=== PATIENT | male | born 1950 | race Two or more races ===

== ENCOUNTER 2023-06-28 14:33 | Inpatient (IN) | payer MEDICARE, OTHER ==
[~2023-06-28] VITALS: Ht 165.1 cm; Wt 66.2 kg
[2023-06-28] MEDS ORDERED: ASPI-1169 PO (15:36)
[2023-06-28] MEDS ORDERED: DORZ10DR10 EACHEYE (15:36)
[2023-06-28] MEDS ORDERED: FOLI0.8T2 PO (15:36)
[2023-06-28] MEDS ORDERED: TIMO5DRO35 EACHEYE (15:36)
[2023-06-28] MEDS ORDERED: SEVE800T8 PO (15:36)
[2023-06-28] MEDS ORDERED: DOCU100C36 PO (15:36)
[2023-06-28] MEDS ORDERED: MELA1TAB2 PO (15:36)
[2023-06-28] MEDS ORDERED: AMIO200T5 PO (15:36)
[2023-06-28] MEDS ORDERED: ALBU18HF2 IH (15:36)
[2023-06-28] MEDS ORDERED: LEVE100S PO (15:36)
[2023-06-28] MEDS ORDERED: AMIO400T5 PO (15:36)
[2023-06-28] MEDS ORDERED: SUCR500T PO (15:36)
[2023-06-28] MEDS ORDERED: ROSU10TA2 PO (15:36)
[2023-06-28] MEDS ORDERED: COLC0.6C3 PO (15:36)
[2023-06-28] MEDS ORDERED: FOLI0.4T6 PO (15:36)
[2023-06-28] MEDS ORDERED: ACET-868 PO (15:36)
[2023-06-28] MEDS ORDERED: CYCL30DR EACHEYE (15:36)
[2023-06-28] MEDS ORDERED: WARF-68 PO (15:36)
[2023-06-28] MEDS ORDERED: OMEP20CA15 PO (15:36)
[2023-06-28] MEDS ORDERED: CHOL100043 PO (15:36)
[2023-06-28] MEDS ORDERED: ATOR20TA PO (15:36)
[2023-06-28 16:08] LABS: BASOPHILS % (AUTO) 0.6 % (0.0-2.0); EOSINOPHILS # (AUTO) 0.6 K/uL (0.0-0.7); EOSINOPHILS % (AUTO) 7.4 % (0.0-6.0); HEMATOCRIT 29 % (39-51); HEMOGLOBIN 9.6 g/dL (13.5-17.5); LYMPHOCYTES # (AUTO) 0.7 K/uL (0.8-4.8); LYMPHOCYTES % (AUTO) 9.6 % (20.0-44.0); MEAN CORPUSCULAR HEMOGLOBIN 29 PG (26.0-33.0); MEAN CORPUSCULAR HGB CONC 33 g/dl (31.0-36.0); MEAN CORPUSCULAR VOLUME 89 fL (80-96); MONOCYTES # (AUTO) 0.9 K/uL (0.1-1.30); MONOCYTES % (AUTO) 11.3 % (2.0-12.0); NEUTROPHILS # (AUTO) 5.5 K/uL (1.8-8.9); NEUTROPHILS % (AUTO) 71.1 % (43.0-81.0); PLATELET COUNT (AUTO) 240 K/uL (150-450); RED BLOOD CELL COUNT(AUTO) 3.28 MIL/uL (4.5-6.0); RED CELL DISTRIBUTION WIDTH 17.4 % (11.5-15.0); WHITE BLOOD COUNT (AUTO) 7.7 K/uL (4.3-11.0)
[2023-06-28 16:16] LABS: CALCIUM, SERUM 9.3 mg/dL (8.5-10.1); CARBON DIOXIDE 34 mmol/L (21-32); CHLORIDE 97 mmol/L (98-107); CREATININE 6.2 mg/dL (0.6-1.3); GLUCOSE 113 mg/dL (74-106); POTASSIUM 4.7 mmol/L (3.5-5.1); SODIUM SERUM 136 mmol/L (136-145); UREA NITROGEN, BLOOD 28 mg/dL (7-18)
[2023-06-28 16:57] LABS: INR 1.26 (0.91-1.10); PARTIAL THROMBOPLASTIN TIME 33.2 SEC (24.3-34.3); PROTHROMBIN TIME 13.2 SECS (9.2-11.1)
[2023-06-28] MEDS: HEPARIN INFUSION/D5W 500 ML IV PRN ×2 (17:50→19:48)
[2023-06-28] MEDS ORDERED: ALBUTEROL FS 2.5 MG/0.5 ML VIAL.NEB NEB PRN (18:30)
[2023-06-28] MEDS ORDERED: MORPHINE SULFATE INJ 2 MG/ML DISP.SYRIN IV PRN (18:30)
[2023-06-28] MEDS ORDERED: DOCUSATE SODIUM 100 MG CAPSULE PO PRN (18:30)
[2023-06-28] MEDS ORDERED: ONDANSETRON HCL/PF 4 MG/2 ML VIAL IVP PRN (18:30)
[2023-06-28 19:40] VITALS: O2SAT 95
[2023-06-28] MEDS: IPRATROPIUM NEB FS 0.5 MG/2.5 ML AMPUL.NEB NEB SCH (19:44)
[2023-06-28] MEDS: ALBUTEROL FS 2.5 MG/3 ML VIAL.NEB NEB SCH (19:45)
[2023-06-28 19:55] VITALS: O2SAT 99
[2023-06-28] MEDS: ATORVASTATIN 10 MG TABLET PO SCH (21:51)
[2023-06-28] MEDS: LEVETIRACETAM SOL (5 ML) 100 MG/ML UDC PO SCH (21:51)
[2023-06-28 22:20] VITALS: BP 149/67; TEMP 98.2; O2SAT 99
[2023-06-28 23:49] LABS: INR 1.33 (0.91-1.10); PARTIAL THROMBOPLASTIN TIME 64.3 SEC (24.3-34.3); PROTHROMBIN TIME 13.8 SECS (9.2-11.1)
[2023-06-29] VITALS (10 sets, daily range): BP systolic 117–153; BP diastolic 49–64; TEMP 97.3–98.2; O2SAT 95–100
[2023-06-29 08:08] LABS: BASOPHILS # (AUTO) 0.1 K/uL (0.0-0.2); EOSINOPHILS # (AUTO) 0.7 K/uL (0.0-0.7); EOSINOPHILS % (AUTO) 9.6 % (0.0-6.0); HEMATOCRIT 26 % (39-51); HEMOGLOBIN 8.7 g/dL (13.5-17.5); LYMPHOCYTES # (AUTO) 0.7 K/uL (0.8-4.8); LYMPHOCYTES % (AUTO) 10.3 % (20.0-44.0); MEAN CORPUSCULAR HEMOGLOBIN 30 PG (26.0-33.0); MEAN CORPUSCULAR HGB CONC 34 g/dl (31.0-36.0); MEAN CORPUSCULAR VOLUME 88 fL (80-96); MONOCYTES # (AUTO) 0.8 K/uL (0.1-1.30); MONOCYTES % (AUTO) 11.3 % (2.0-12.0); NEUTROPHILS # (AUTO) 4.9 K/uL (1.8-8.9); NEUTROPHILS % (AUTO) 67.8 % (43.0-81.0); PLATELET COUNT (AUTO) 235 K/uL (150-450); RED BLOOD CELL COUNT(AUTO) 2.94 MIL/uL (4.5-6.0); RED CELL DISTRIBUTION WIDTH 17.1 % (11.5-15.0); WHITE BLOOD COUNT (AUTO) 7.2 K/uL (4.3-11.0)
[2023-06-29] MEDS: CHOLECALCIFEROL 1,000 UNIT TABLET (VIT D3) PO SCH (08:13)
[2023-06-29] MEDS: DORZOLAMIDE OPTH 2% 10 ML BOTTLE EACHEYE SCH (08:13)
[2023-06-29] MEDS: ASPIRIN 81 MG TAB.CHEW PO SCH (08:13)
[2023-06-29 08:14] LABS: INR 1.3 (0.91-1.10); PROTHROMBIN TIME 13.5 SECS (9.2-11.1)
[2023-06-29] MEDS: PANTOPRAZOLE 40 MG TABLET.DR PO SCH (08:14)
[2023-06-29] MEDS: SEVELAMER CARBONATE 800 MG TABLET PO SCH (08:14)
[2023-06-29] MEDS: AMIODARONE HCL 200 MG TABLET PO SCH (08:15)
[2023-06-29] MEDS: WARFARIN SODIUM 2 MG TABLET PO SCH (08:33)
[2023-06-29 08:44] LABS: ALANINE AMINOTRANSFERASE 6 U/L (12-78); ALBUMIN 2.8 g/dL (3.4-5.0); ALKALINE PHOSPHATASE 175 U/L (46-116); ASPARTATE AMINOTRANSFERASE 22 U/L (15-37); BILIRUBIN,TOTAL 0.6 mg/dL (0.2-1.0); CALCIUM, SERUM 8.9 mg/dL (8.5-10.1); CARBON DIOXIDE 28 mmol/L (21-32); CHLORIDE 97 mmol/L (98-107); CREATININE 7.4 mg/dL (0.6-1.3); GLUCOSE 90 mg/dL (74-106); MAGNESIUM 2.1 mg/dL (1.8-2.4); PHOSPHORUS 5.1 mg/dL (2.5-4.9); POTASSIUM 3.8 mmol/L (3.5-5.1); SODIUM SERUM 135 mmol/L (136-145); TOTAL PROTEIN, SERUM 6.9 g/dL (6.4-8.2); UREA NITROGEN, BLOOD 39 mg/dL (7-18)
[2023-06-29] MEDS ORDERED: Medication Not On Formulary EA (Cyclosporine (Restasis) 1 DROP) EACHEYE SCH (09:00)
[2023-06-29] MEDS: LEVETIRACETAM (250 MG) 250 MG TABLET PO SCH (18:10)
[2023-06-30] VITALS (11 sets, daily range): BP systolic 120–148; BP diastolic 48–68; TEMP 97.7–98.5; O2SAT 95–100
[2023-06-30 07:39] LABS: INR 1.41 (0.91-1.10); PARTIAL THROMBOPLASTIN TIME 70.5 SEC (24.3-34.3); PROTHROMBIN TIME 14.6 SECS (9.2-11.1)
[2023-06-30] MEDS ORDERED: WARFARIN SODIUM 5 MG TABLET PO SCH (09:00)
[2023-06-30] MEDS: WARFARIN SODIUM 5 MG TABLET PO SCH (09:06)
[2023-06-30 13:29] LABS: INR 1.46 (0.91-1.10); PROTHROMBIN TIME 15.1 SECS (9.2-11.1)
[2023-06-30 13:45] LABS: PARTIAL THROMBOPLASTIN TIME 81.9 SEC (24.3-34.3)
[2023-06-30] MEDS ORDERED: COLCHICINE 0.6 MG TABLET PO SCH (18:47)
[2023-06-30] MEDS ORDERED: LEVETIRACETAM SOL (5 ML) 100 MG/ML UDC PO SCH (18:54)
[2023-06-30 18:56] LABS: INR 1.55 (0.91-1.10)
[2023-06-30] MEDS: COLCHICINE 0.6 MG TABLET PO SCH (21:12)
[2023-06-30] MEDS: LEVETIRACETAM SOL (5 ML) 100 MG/ML UDC PO SCH (21:12)
[2023-07-01] VITALS (13 sets, daily range): BP systolic 130–163; BP diastolic 42–64; TEMP 98.1–98.4; O2SAT 96–100
[2023-07-01 07:05] LABS: INR 1.85 (0.91-1.10); PROTHROMBIN TIME 18.8 SECS (9.2-11.1)
[2023-07-02] VITALS (10 sets, daily range): BP systolic 147–159; BP diastolic 48–65; TEMP 97.7–98.4; O2SAT 95–100
[2023-07-02] MEDS: ACETAMINOPHEN 325 MG TABLET PO PRN (07:03)
[2023-07-02 07:05] LABS: INR 2.42 (0.91-1.10); PROTHROMBIN TIME 24.2 SECS (9.2-11.1)
[2023-07-02] MEDS: WARFARIN SODIUM 5 MG TABLET PO SCH (09:16)
[2023-07-02 13:06] LABS: HEPATITIS B SURFACE AB Reactive (.)
== END 2023-07-02 18:02 | DRG 947 ==
LOC: ER 14:33 → TELE1 18:26 → MEDSG1 06-30 14:43
PROVIDERS: ADMIT Internal Medicine; ATTEND Nurse Practitioner Acute Care
PROC: 05HY33Z Insertion of Infusion Device into Upper Vein, Percutaneous Approach (ICD-10-PCS; 2023-06-29)
PROC: 5A1D70Z Performance of Urinary Filtration, Intermittent, Less than 6 Hours Per Day (ICD-10-PCS; principal; 2023-06-30)
DX: R79.1 Abnormal coagulation profile (principal); N18.6 End stage renal disease; I12.0 Hypertensive chronic kidney disease with stage 5 chronic kidney disease or end stage renal disease; E87.1 Hypo-osmolality and hyponatremia; G40.909 Epilepsy, unspecified, not intractable, without status epilepticus; I48.91 Unspecified atrial fibrillation; E11.22 Type 2 diabetes mellitus with diabetic chronic kidney disease; Z20.822 Contact with and (suspected) exposure to COVID-19; E78.5 Hyperlipidemia, unspecified; Z79.51 Long term (current) use of inhaled steroids; Z79.01 Long term (current) use of anticoagulants; Z79.899 Other long term (current) drug therapy; Z79.82 Long term (current) use of aspirin; M89.8X9 Other specified disorders of bone, unspecified site; Z87.891 Personal history of nicotine dependence; Z95.2 Presence of prosthetic heart valve; D63.8 Anemia in other chronic diseases classified elsewhere; Z99.2 Dependence on renal dialysis
CPT/HCPCS: 36410; 36415; 71045-TC; 80048-TC; 80053-TC; 83735-TC; 84100-TC; 85025-TC; 85610-TC; 85730-TC; 86706; 87340; 90935-TC; 93307-TC; 94762-TC; 94799-TC; 97110-TC; 97116-TC; 97530-TC; 97535-TC; A4223; A6403; G0378; J1644; J1953; J7030

== ENCOUNTER 2023-07-13 17:46 | Inpatient (IN) | payer MEDICARE, OTHER ==
[~2023-07-13] VITALS: Ht 165.1 cm; Wt 65.3 kg
[~2023-07-13 17:46] MED LIST: ACET-868 PO; ALBU18HF2 IH; AMIO200T5 PO; AMIO400T5 PO; ASPI-1169 PO; ATOR20TA PO; CHOL100043 PO; COLC0.6C3 PO; CYCL30DR EACHEYE; DOCU100C36 PO; DORZ10DR10 EACHEYE; FOLI0.4T6 PO; FOLI0.8T2 PO; LEVE100S PO; MELA1TAB2 PO; OMEP20CA15 PO; ROSU10TA2 PO; SEVE800T8 PO; SUCR500T PO; TIMO5DRO35 EACHEYE; WARF-68 PO
[2023-07-13 18:25] LABS: BASOPHILS % (AUTO) 0.6 % (0.0-2.0); EOSINOPHILS # (AUTO) 0.7 K/uL (0.0-0.7); EOSINOPHILS % (AUTO) 8.7 % (0.0-6.0); LYMPHOCYTES # (AUTO) 0.7 K/uL (0.8-4.8); LYMPHOCYTES % (AUTO) 8.7 % (20.0-44.0); MEAN CORPUSCULAR HEMOGLOBIN 30 PG (26.0-33.0); MEAN CORPUSCULAR HGB CONC 33 g/dl (31.0-36.0); MEAN CORPUSCULAR VOLUME 93 fL (80-96); MONOCYTES # (AUTO) 0.6 K/uL (0.1-1.30); MONOCYTES % (AUTO) 7.4 % (2.0-12.0); NEUTROPHILS # (AUTO) 5.6 K/uL (1.8-8.9); NEUTROPHILS % (AUTO) 74.6 % (43.0-81.0); PLATELET COUNT (AUTO) 171 K/uL (150-450); RED BLOOD CELL COUNT(AUTO) 2.05 MIL/uL (4.5-6.0); RED CELL DISTRIBUTION WIDTH 20.7 % (11.5-15.0); WHITE BLOOD COUNT (AUTO) 7.5 K/uL (4.3-11.0)
[2023-07-13 18:31] LABS: CALCIUM, SERUM 9.1 mg/dL (8.5-10.1); CARBON DIOXIDE 30 mmol/L (21-32); CHLORIDE 94 mmol/L (98-107); GLUCOSE 132 mg/dL (74-106); POTASSIUM 3.6 mmol/L (3.5-5.1); SODIUM SERUM 136 mmol/L (136-145); UREA NITROGEN, BLOOD 54 mg/dL (7-18)
[2023-07-13 18:37] LABS: ALANINE AMINOTRANSFERASE 15 U/L (12-78); ALKALINE PHOSPHATASE 149 U/L (46-116); ASPARTATE AMINOTRANSFERASE 21 U/L (15-37); BILIRUBIN,DIRECT 0.2 mg/dL (0.0-0.2); BILIRUBIN,TOTAL 0.5 mg/dL (0.2-1.0); TOTAL PROTEIN, SERUM 6.9 g/dL (6.4-8.2)
[2023-07-13 18:39] LABS: CREATININE 9.4 mg/dL (0.6-1.3)
[2023-07-13 18:40] LABS: HEMATOCRIT 19 % (39-51); HEMOGLOBIN 6.2 g/dL (13.5-17.5)
[2023-07-13 18:46] LABS: INR 2.16 (0.91-1.10); PARTIAL THROMBOPLASTIN TIME 39.8 SEC (24.3-34.3); PROTHROMBIN TIME 21.8 SECS (9.2-11.1)
[2023-07-13 20:04] LABS: BASOPHILS % (MANUAL) 1 % (0.0-2.0); EOSINOPHILS % (MANUAL) 5 % (0-4); LYMPHOCYTES % (MANUAL) 4 % (16-48); MONOCYTES % (MANUAL) 6 % (0-11.0); NEUTROPHILS % (MANUAL) 84 (42-76)
[2023-07-13 20:05] LABS: ANISOCYTOSIS 1+; OVALOCYTES RARE; PLATELET ESTIMATE ADEQUATE
[2023-07-13 20:45] VITALS: BP 173/70; TEMP 98.2; O2SAT 98
[2023-07-13] MEDS ORDERED: ACETAMINOPHEN 325 MG TABLET PO PRN (23:00)
[2023-07-13] MEDS ORDERED: ONDANSETRON HCL/PF 4 MG/2 ML VIAL IVP PRN (23:00)
[2023-07-13 23:41] LABS: INR 2.16 (0.91-1.10); PROTHROMBIN TIME 21.8 SECS (9.2-11.1)
[2023-07-13] MEDS: MORPHINE SULFATE INJ 2 MG/ML DISP.SYRIN IV PRN (23:59)
[2023-07-14] VITALS (7 sets, daily range): BP systolic 148–183; BP diastolic 61–77; TEMP 97.5–98.4; O2SAT 98–100
[2023-07-14] MEDS: hydrALAZINE HCL IV 20 MG VIAL IV PRN (01:22)
[2023-07-14 07:26] LABS: INR 2.26 (0.91-1.10); PROTHROMBIN TIME 22.7 SECS (9.2-11.1)
[2023-07-14 07:27] LABS: ALANINE AMINOTRANSFERASE 13 U/L (12-78); ALBUMIN 2.7 g/dL (3.4-5.0); ALKALINE PHOSPHATASE 121 U/L (46-116); ASPARTATE AMINOTRANSFERASE 20 U/L (15-37); BILIRUBIN,TOTAL 0.6 mg/dL (0.2-1.0); CARBON DIOXIDE 26 mmol/L (21-32); CHLORIDE 95 mmol/L (98-107); GLUCOSE 78 mg/dL (74-106); MAGNESIUM 2.2 mg/dL (1.8-2.4); PHOSPHORUS 5.1 mg/dL (2.5-4.9); POTASSIUM 3.6 mmol/L (3.5-5.1); SODIUM SERUM 137 mmol/L (136-145); TOTAL PROTEIN, SERUM 6.3 g/dL (6.4-8.2); UREA NITROGEN, BLOOD 59 mg/dL (7-18)
[2023-07-14 07:38] LABS: BASOPHILS % (AUTO) 0.6 % (0.0-2.0); EOSINOPHILS # (AUTO) 0.7 K/uL (0.0-0.7); EOSINOPHILS % (AUTO) 9.4 % (0.0-6.0); HEMATOCRIT 21 % (39-51); LYMPHOCYTES # (AUTO) 0.7 K/uL (0.8-4.8); LYMPHOCYTES % (AUTO) 9.2 % (20.0-44.0); MEAN CORPUSCULAR HEMOGLOBIN 30 PG (26.0-33.0); MEAN CORPUSCULAR HGB CONC 34 g/dl (31.0-36.0); MEAN CORPUSCULAR VOLUME 90 fL (80-96); MONOCYTES # (AUTO) 0.7 K/uL (0.1-1.30); MONOCYTES % (AUTO) 10.1 % (2.0-12.0); NEUTROPHILS # (AUTO) 5.2 K/uL (1.8-8.9); NEUTROPHILS % (AUTO) 70.7 % (43.0-81.0); PLATELET COUNT (AUTO) 154 K/uL (150-450); RED CELL DISTRIBUTION WIDTH 18.9 % (11.5-15.0); WHITE BLOOD COUNT (AUTO) 7.3 K/uL (4.3-11.0)
[2023-07-14 07:39] LABS: CREATININE 10.3 mg/dL (0.6-1.3)
[2023-07-14 07:55] LABS: HEMOGLOBIN 6.9 g/dL (13.5-17.5)
[2023-07-14] MEDS: ASPIRIN 81 MG TAB.CHEW PO SCH (09:00)
[2023-07-14] MEDS ORDERED: TIMOLOL 0.5% SOLN OPHTH 5 ML BOTTLE EACHEYE SCH (09:00)
[2023-07-14] MEDS ORDERED: FOLIC ACID 1 MG TABLET PO SCH (09:00)
[2023-07-14] MEDS: AMIODARONE HCL 200 MG TABLET PO SCH (09:00)
[2023-07-14] MEDS ORDERED: AMIN30LI2 PO (09:09)
[2023-07-14] MEDS ORDERED: IPRA3AMP22 IH (09:09)
[2023-07-14] MEDS ORDERED: ALBU2.5V38 IH (09:09)
[2023-07-14] MEDS ORDERED: AMOX-427 PO (09:09)
[2023-07-14] MEDS: COLCHICINE 0.6 MG TABLET PO SCH (09:40)
[2023-07-14] MEDS: PANTOPRAZOLE 40 MG TABLET.DR PO SCH (09:40)
[2023-07-14] MEDS: DORZOLAMIDE OPTH 2% 10 ML BOTTLE EACHEYE SCH (09:42)
[2023-07-14] MEDS: SEVELAMER CARBONATE 800 MG TABLET PO SCH (09:42)
[2023-07-14 10:54] LABS: ANISOCYTOSIS 1+; BASOPHILS % (MANUAL) 0 % (0.0-2.0); EOSINOPHILS % (MANUAL) 5 % (0-4); HYPOCHROMASIA 1+; LYMPHOCYTES % (MANUAL) 9 % (16-48); MONOCYTES % (MANUAL) 11 % (0-11.0); NEUTROPHILS % (MANUAL) 75 (42-76); PLATELET ESTIMATE ADEQUATE
[2023-07-14] MEDS: LEVETIRACETAM SOL (5 ML) 100 MG/ML UDC PO SCH (13:04)
[2023-07-14] MEDS ORDERED: WARFARIN SODIUM 2 MG TABLET PO SCH (17:00)
[2023-07-14] MEDS: POLYVINYL ALCOHOL 15 ML BOTTLE EACHEYE SCH (17:00)
[2023-07-14 21:44] LABS: HEMOGLOBIN 9.3 g/dL (13.5-17.5)
[2023-07-14] MEDS ORDERED: ATORVASTATIN 10 MG TABLET PO SCH (22:00)
[2023-07-15] MEDS ORDERED: LEVETIRACETAM SOL (5 ML) 100 MG/ML UDC PO SCH (09:00)
== END 2023-07-14 21:40 | DRG 291 ==
LOC: ER 17:50 → MED 19:17
PROVIDERS: ADMIT Nurse Practitioner Acute Care; ATTEND Nurse Practitioner Acute Care
PROC: 30233N1 Transfusion of Nonautologous Red Blood Cells into Peripheral Vein, Percutaneous Approach (ICD-10-PCS; principal; 2023-07-13)
DX: I13.2 Hypertensive heart and chronic kidney disease with heart failure and with stage 5 chronic kidney disease, or end stage renal disease (principal); N18.6 End stage renal disease; D68.59 Other primary thrombophilia; I50.32 Chronic diastolic (congestive) heart failure; E11.22 Type 2 diabetes mellitus with diabetic chronic kidney disease; Z99.2 Dependence on renal dialysis; G40.909 Epilepsy, unspecified, not intractable, without status epilepticus; E11.51 Type 2 diabetes mellitus with diabetic peripheral angiopathy without gangrene; Z95.0 Presence of cardiac pacemaker; Z79.51 Long term (current) use of inhaled steroids; Z79.01 Long term (current) use of anticoagulants; Z79.82 Long term (current) use of aspirin; Z79.899 Other long term (current) drug therapy; D63.1 Anemia in chronic kidney disease; E78.5 Hyperlipidemia, unspecified; E83.51 Hypocalcemia; I48.91 Unspecified atrial fibrillation; Z87.891 Personal history of nicotine dependence
CPT/HCPCS: 36415; 71045-TC; 80048-TC; 80053-TC; 80076-TC; 83735-TC; 84100-TC; 85025-TC; 85027-TC; 85610-TC; 85730-TC; 86850-TC; 87081-TC; G0378; J0360; J1953; J2270; J7040; J7050; P9016

== ENCOUNTER 2023-07-17 16:22 | Inpatient (IN) | payer MEDICARE, OTHER ==
[~2023-07-17] VITALS: Ht 165.1 cm; Wt 67.1 kg
[~2023-07-17 16:22] MED LIST changes: -ALBU18HF2 IH; +ALBU2.5V38 IH; +AMIN30LI2 PO; -AMIO400T5 PO; +AMOX-427 PO; -CYCL30DR EACHEYE; -FOLI0.4T6 PO; +IPRA3AMP22 IH; -MELA1TAB2 PO; -ROSU10TA2 PO; -SUCR500T PO; -TIMO5DRO35 EACHEYE; -WARF-68 PO
[2023-07-17 17:10] LABS: BASOPHILS # (AUTO) 0.1 K/uL (0.0-0.2); BASOPHILS % (AUTO) 1.2 % (0.0-2.0); EOSINOPHILS # (AUTO) 0.6 K/uL (0.0-0.7); EOSINOPHILS % (AUTO) 9.7 % (0.0-6.0); HEMATOCRIT 26 % (39-51); HEMOGLOBIN 8.7 g/dL (13.5-17.5); LYMPHOCYTES # (AUTO) 0.7 K/uL (0.8-4.8); LYMPHOCYTES % (AUTO) 11.3 % (20.0-44.0); MEAN CORPUSCULAR HEMOGLOBIN 30 PG (26.0-33.0); MEAN CORPUSCULAR HGB CONC 33 g/dl (31.0-36.0); MEAN CORPUSCULAR VOLUME 90 fL (80-96); MONOCYTES # (AUTO) 0.8 K/uL (0.1-1.30); MONOCYTES % (AUTO) 13.4 % (2.0-12.0); NEUTROPHILS # (AUTO) 3.9 K/uL (1.8-8.9); NEUTROPHILS % (AUTO) 64.4 % (43.0-81.0); PLATELET COUNT (AUTO) 149 K/uL (150-450); RED BLOOD CELL COUNT(AUTO) 2.91 MIL/uL (4.5-6.0); RED CELL DISTRIBUTION WIDTH 18.1 % (11.5-15.0); WHITE BLOOD COUNT (AUTO) 6.1 K/uL (4.3-11.0)
[2023-07-17 17:22] LABS: CALCIUM, SERUM 9.1 mg/dL (8.5-10.1); CARBON DIOXIDE 31 mmol/L (21-32); CHLORIDE 94 mmol/L (98-107); GLUCOSE 129 mg/dL (74-106); POTASSIUM 4.3 mmol/L (3.5-5.1); SODIUM SERUM 136 mmol/L (136-145); UREA NITROGEN, BLOOD 40 mg/dL (7-18)
[2023-07-17 17:23] LABS: INR 1.43 (0.91-1.10); PARTIAL THROMBOPLASTIN TIME 36.9 SEC (24.3-34.3); PROTHROMBIN TIME 14.8 SECS (9.2-11.1)
[2023-07-17] MEDS ORDERED: ONDANSETRON HCL/PF 4 MG/2 ML VIAL IVP PRN (17:30)
[2023-07-17] MEDS ORDERED: HEPARIN INFUSION/D5W 500 ML IV ONE (17:41)
[2023-07-17] MEDS: HEPARIN INFUSION/D5W 500 ML IV PRN (18:02)
[2023-07-17 21:00] VITALS: BP 177/72; TEMP 98.4; O2SAT 98
[2023-07-17] MEDS ORDERED: ALBUTEROL FS 2.5 MG/3 ML VIAL.NEB IH PRN (21:00)
[2023-07-17] MEDS: DORZOLAMIDE OPTH 2% 10 ML BOTTLE EACHEYE SCH (21:00)
[2023-07-17] MEDS ORDERED: DOCUSATE SODIUM 100 MG CAPSULE PO PRN (21:00)
[2023-07-17] MEDS: SEVELAMER CARBONATE 800 MG TABLET PO SCH (21:45)
[2023-07-17] MEDS: ATORVASTATIN 10 MG TABLET PO SCH (21:45)
[2023-07-17] MEDS: COLCHICINE 0.6 MG TABLET PO SCH (21:53)
[2023-07-18] VITALS (15 sets, daily range): BP systolic 147–172; BP diastolic 57–69; TEMP 97.5–98.2; O2SAT 94–100
[2023-07-18] MEDS ORDERED: IPRATROPIUM/ALBUTEROL INHALER IH SCH
[2023-07-18 01:41] LABS: INR 1.4 (0.91-1.10); PROTHROMBIN TIME 14.5 SECS (9.2-11.1)
[2023-07-18] MEDS: hydrALAZINE HCL IV 20 MG VIAL IV PRN (02:13)
[2023-07-18] MEDS: ALBUTEROL FS 2.5 MG/0.5 ML VIAL.NEB NEB SCH (02:24)
[2023-07-18] MEDS: IPRATROPIUM NEB FS 0.5 MG/2.5 ML AMPUL.NEB IH SCH (02:24)
[2023-07-18] MEDS: PANTOPRAZOLE 40 MG TABLET.DR PO SCH (07:02)
[2023-07-18 07:42] LABS: BASOPHILS % (AUTO) 0.8 % (0.0-2.0); EOSINOPHILS # (AUTO) 0.6 K/uL (0.0-0.7); EOSINOPHILS % (AUTO) 10.4 % (0.0-6.0); HEMATOCRIT 26 % (39-51); HEMOGLOBIN 8.5 g/dL (13.5-17.5); LYMPHOCYTES # (AUTO) 0.7 K/uL (0.8-4.8); LYMPHOCYTES % (AUTO) 10.6 % (20.0-44.0); MEAN CORPUSCULAR HEMOGLOBIN 30 PG (26.0-33.0); MEAN CORPUSCULAR HGB CONC 33 g/dl (31.0-36.0); MEAN CORPUSCULAR VOLUME 90 fL (80-96); MONOCYTES # (AUTO) 0.8 K/uL (0.1-1.30); MONOCYTES % (AUTO) 12.3 % (2.0-12.0); NEUTROPHILS # (AUTO) 4.1 K/uL (1.8-8.9); NEUTROPHILS % (AUTO) 65.9 % (43.0-81.0); PLATELET COUNT (AUTO) 147 K/uL (150-450); RED BLOOD CELL COUNT(AUTO) 2.86 MIL/uL (4.5-6.0); RED CELL DISTRIBUTION WIDTH 17.5 % (11.5-15.0); WHITE BLOOD COUNT (AUTO) 6.2 K/uL (4.3-11.0)
[2023-07-18 08:10] LABS: CARBON DIOXIDE 27 mmol/L (21-32); CHLORIDE 97 mmol/L (98-107); GLUCOSE 86 mg/dL (74-106); MAGNESIUM 2.2 mg/dL (1.8-2.4); PHOSPHORUS 5.5 mg/dL (2.5-4.9); POTASSIUM 3.8 mmol/L (3.5-5.1); SODIUM SERUM 137 mmol/L (136-145); UREA NITROGEN, BLOOD 47 mg/dL (7-18)
[2023-07-18 08:20] LABS: CREATININE 8.1 mg/dL (0.6-1.3)
[2023-07-18] MEDS: ASPIRIN 81 MG TAB.CHEW PO SCH (09:11)
[2023-07-18] MEDS: VIT B CMPLX 3/FA/VIT C/BIOTIN 1 TAB TABLET PO SCH (09:12)
[2023-07-18] MEDS: AMIODARONE HCL 200 MG TABLET PO SCH (09:12)
[2023-07-18] MEDS: CHOLECALCIFEROL (VITAMIN D 3) 400 UNIT TABLET PO SCH (09:12)
[2023-07-18] MEDS: PROSTAT (PYXIS) 30 ML UDC PO SCH (09:15)
[2023-07-18 09:34] LABS: INR 1.35 (0.91-1.10)
[2023-07-18 09:38] LABS: PARTIAL THROMBOPLASTIN TIME 90.5 SEC (24.3-34.3)
[2023-07-18] MEDS ORDERED: WARFARIN SODIUM 5 MG TABLET PO SCH (10:30)
[2023-07-18] MEDS: AMOX/CLAVULANATE 875 MG TABLET PO SCH (10:30)
[2023-07-18] MEDS: EPOETIN ALFA (10,000 UNIT) 10,000 UNIT/ML VIAL SQ ONE (10:30)
[2023-07-18] MEDS: WARFARIN SODIUM 5 MG TABLET PO SCH (10:59)
[2023-07-18] MEDS: LEVETIRACETAM (250 MG) 250 MG TABLET PO SCH (13:16)
[2023-07-18 16:16] LABS: INR 1.36 (0.91-1.10); PARTIAL THROMBOPLASTIN TIME 69.8 SEC (24.3-34.3); PROTHROMBIN TIME 14.1 SECS (9.2-11.1)
[2023-07-18] MEDS: HEPARIN INFUSION/D5W 500 ML IV PRN (18:15)
[2023-07-18] MEDS ORDERED: LEVETIRACETAM SOL (5 ML) 100 MG/ML UDC PO SCH (21:00)
[2023-07-18 23:37] LABS: INR 1.49 (0.91-1.10); PROTHROMBIN TIME 15.4 SECS (9.2-11.1)
[2023-07-18 23:47] LABS: PARTIAL THROMBOPLASTIN TIME > 170.0 SEC (24.3-34.3)
[2023-07-19] VITALS (13 sets, daily range): BP systolic 111–170; BP diastolic 53–76; TEMP 97.8–98.9; O2SAT 98–100
[2023-07-19 08:35] LABS: INR 1.49 (0.91-1.10); PROTHROMBIN TIME 15.4 SECS (9.2-11.1)
[2023-07-19 08:41] LABS: INR 1.49 (0.91-1.10); PROTHROMBIN TIME 15.4 SECS (9.2-11.1)
[2023-07-19 09:12] LABS: BASOPHILS % (AUTO) 0.6 % (0.0-2.0); EOSINOPHILS # (AUTO) 0.5 K/uL (0.0-0.7); EOSINOPHILS % (AUTO) 7.3 % (0.0-6.0); HEMATOCRIT 26 % (39-51); HEMOGLOBIN 8.6 g/dL (13.5-17.5); LYMPHOCYTES # (AUTO) 0.7 K/uL (0.8-4.8); LYMPHOCYTES % (AUTO) 9.3 % (20.0-44.0); MEAN CORPUSCULAR HEMOGLOBIN 30 PG (26.0-33.0); MEAN CORPUSCULAR HGB CONC 33 g/dl (31.0-36.0); MEAN CORPUSCULAR VOLUME 90 fL (80-96); MONOCYTES # (AUTO) 0.9 K/uL (0.1-1.30); NEUTROPHILS # (AUTO) 5.1 K/uL (1.8-8.9); NEUTROPHILS % (AUTO) 70.8 % (43.0-81.0); PLATELET COUNT (AUTO) 178 K/uL (150-450); RED CELL DISTRIBUTION WIDTH 18.4 % (11.5-15.0); WHITE BLOOD COUNT (AUTO) 7.2 K/uL (4.3-11.0)
[2023-07-19 10:28] LABS: CALCIUM, SERUM 9.1 mg/dL (8.5-10.1); CARBON DIOXIDE 26 mmol/L (21-32); CHLORIDE 96 mmol/L (98-107); CREATININE 6.1 mg/dL (0.6-1.3); GLUCOSE 93 mg/dL (74-106); POTASSIUM 3.9 mmol/L (3.5-5.1); SODIUM SERUM 134 mmol/L (136-145); UREA NITROGEN, BLOOD 33 mg/dL (7-18)
[2023-07-19 10:34] LABS: ALANINE AMINOTRANSFERASE 16 U/L (12-78); ALBUMIN 2.8 g/dL (3.4-5.0); ALKALINE PHOSPHATASE 111 U/L (46-116); ASPARTATE AMINOTRANSFERASE 19 U/L (15-37); BILIRUBIN,TOTAL 0.6 mg/dL (0.2-1.0)
[2023-07-19] MEDS ORDERED: LEVETIRACETAM SOL (5 ML) 100 MG/ML UDC PO SCH (21:00)
[2023-07-20] VITALS (14 sets, daily range): BP systolic 141–165; BP diastolic 54–66; TEMP 97.9–99; O2SAT 98–100
[2023-07-20 07:17] LABS: CALCIUM, SERUM 9.3 mg/dL (8.5-10.1); CARBON DIOXIDE 30 mmol/L (21-32); CHLORIDE 94 mmol/L (98-107); GLUCOSE 103 mg/dL (74-106); POTASSIUM 4.4 mmol/L (3.5-5.1); SODIUM SERUM 132 mmol/L (136-145); UREA NITROGEN, BLOOD 53 mg/dL (7-18)
[2023-07-20 07:26] LABS: CREATININE 8.2 mg/dL (0.6-1.3)
[2023-07-20 07:47] LABS: INR 2.28 (0.91-1.10); PARTIAL THROMBOPLASTIN TIME 53.8 SEC (24.3-34.3); PROTHROMBIN TIME 22.9 SECS (9.2-11.1)
[2023-07-21] VITALS (8 sets, daily range): BP systolic 138–154; BP diastolic 57–68; TEMP 97.9; O2SAT 99–100
[2023-07-21 07:16] LABS: INR 3.4 (0.91-1.10); PARTIAL THROMBOPLASTIN TIME 66.3 SEC (24.3-34.3); PROTHROMBIN TIME 33.3 SECS (9.2-11.1)
[2023-07-21 07:20] LABS: CALCIUM, SERUM 9.1 mg/dL (8.5-10.1); CARBON DIOXIDE 24 mmol/L (21-32); CHLORIDE 93 mmol/L (98-107); GLUCOSE 106 mg/dL (74-106); POTASSIUM 4.5 mmol/L (3.5-5.1); SODIUM SERUM 132 mmol/L (136-145); UREA NITROGEN, BLOOD 63 mg/dL (7-18)
[2023-07-21 08:08] LABS: CREATININE 10.4 mg/dL (0.6-1.3)
[2023-07-21] MEDS: ACETAMINOPHEN 325 MG TABLET PO PRN (08:28)
[2023-07-21] MEDS ORDERED: WARF6TAB49 PO (08:56)
== END 2023-07-21 15:47 | DRG 947 ==
LOC: ER 16:22 → TELE-TD 17:35 → TELE1 07-18 11:51 → MEDSG1 07-20 13:18
PROVIDERS: ADMIT Nurse Practitioner Acute Care; ATTEND Nurse Practitioner Acute Care
PROC: 5A1D70Z Performance of Urinary Filtration, Intermittent, Less than 6 Hours Per Day (ICD-10-PCS; 2023-07-18)
PROC: 05HB33Z Insertion of Infusion Device into Right Basilic Vein, Percutaneous Approach (ICD-10-PCS; principal; 2023-07-19)
DX: R79.1 Abnormal coagulation profile (principal); N18.6 End stage renal disease; I13.2 Hypertensive heart and chronic kidney disease with heart failure and with stage 5 chronic kidney disease, or end stage renal disease; I50.32 Chronic diastolic (congestive) heart failure; E87.1 Hypo-osmolality and hyponatremia; Z74.01 Bed confinement status; T45.515A Adverse effect of anticoagulants, initial encounter; Y92.9 Unspecified place or not applicable; Z79.899 Other long term (current) drug therapy; E78.5 Hyperlipidemia, unspecified; E83.52 Hypercalcemia; E11.22 Type 2 diabetes mellitus with diabetic chronic kidney disease; I48.91 Unspecified atrial fibrillation; Z95.2 Presence of prosthetic heart valve; Z99.2 Dependence on renal dialysis; Z79.01 Long term (current) use of anticoagulants; I35.1 Nonrheumatic aortic (valve) insufficiency; E11.51 Type 2 diabetes mellitus with diabetic peripheral angiopathy without gangrene; D64.9 Anemia, unspecified; G40.909 Epilepsy, unspecified, not intractable, without status epilepticus; M89.8X9 Other specified disorders of bone, unspecified site; Z87.891 Personal history of nicotine dependence; Z95.0 Presence of cardiac pacemaker
CPT/HCPCS: 36410; 36415; 71045-TC; 80048-TC; 80053-TC; 83735-TC; 84100-TC; 85025-TC; 85610-TC; 85730-TC; 87081-TC; 90935-TC; 93971-TC; 94799-TC; G0378; J0360; J0885; J1644

== ENCOUNTER 2023-07-22 18:37 | Emergency (ER) | payer MEDICARE, OTHER ==
[~2023-07-22] VITALS: Ht 165.1 cm; Wt 72.6 kg
[~2023-07-22 18:37] MED LIST changes: +WARF6TAB49 PO
[2023-07-22 19:40] VITALS: BP 160/78; TEMP 98.4
[2023-07-22 21:14] LABS: INR 2.86 (0.91-1.10); PARTIAL THROMBOPLASTIN TIME 47.4 SEC (24.3-34.3)
[2023-07-22 21:49] VITALS: O2SAT 99
== END 2023-07-22 21:49 ==
LOC: ER 18:43
DX: Z13.9 Encounter for screening, unspecified (principal); G40.909 Epilepsy, unspecified, not intractable, without status epilepticus; I48.91 Unspecified atrial fibrillation; I12.0 Hypertensive chronic kidney disease with stage 5 chronic kidney disease or end stage renal disease; N18.6 End stage renal disease; E11.22 Type 2 diabetes mellitus with diabetic chronic kidney disease; D64.9 Anemia, unspecified; Z79.82 Long term (current) use of aspirin; Z79.899 Other long term (current) drug therapy
CPT/HCPCS: 36415; 85730-TC

== ENCOUNTER 2023-07-28 22:23 | Inpatient (IN) | payer MEDICARE, OTHER ==
[~2023-07-28] VITALS: Ht 167.6 cm; Wt 65.8 kg
[2023-07-28 23:46] LABS: BASOPHILS % (AUTO) 0.6 % (0.0-2.0); EOSINOPHILS # (AUTO) 0.2 K/uL (0.0-0.7); LYMPHOCYTES # (AUTO) 0.6 K/uL (0.8-4.8); MEAN CORPUSCULAR HEMOGLOBIN 30 PG (26.0-33.0); MEAN CORPUSCULAR HGB CONC 33 g/dl (31.0-36.0); MEAN CORPUSCULAR VOLUME 91 fL (80-96); MONOCYTES # (AUTO) 0.6 K/uL (0.1-1.30); NEUTROPHILS # (AUTO) 4.8 K/uL (1.8-8.9); NEUTROPHILS % (AUTO) 78.4 % (43.0-81.0); PLATELET COUNT (AUTO) 180 K/uL (150-450); RED CELL DISTRIBUTION WIDTH 19.5 % (11.5-15.0); WHITE BLOOD COUNT (AUTO) 6.1 K/uL (4.3-11.0)
[2023-07-28 23:51] LABS: RED BLOOD CELL COUNT(AUTO) 1.65 MIL/uL (4.5-6.0)
[2023-07-28] MEDS: IV NS 0.9% 1,000 ML BAG IV ONE (23:51)
[2023-07-28 23:54] LABS: HEMATOCRIT 15 % (39-51); HEMOGLOBIN 4.9 g/dL (13.5-17.5)
[2023-07-29] VITALS (47 sets, daily range): BP systolic 75–150; BP diastolic 23–94; TEMP 97.6–101; O2SAT 96–100
[2023-07-29 00:02] LABS: CALCIUM, SERUM 8.6 mg/dL (8.5-10.1); CARBON DIOXIDE 29 mmol/L (21-32); CHLORIDE 95 mmol/L (98-107); CREATININE 5.4 mg/dL (0.6-1.3); GLUCOSE 122 mg/dL (74-106); POTASSIUM 4.4 mmol/L (3.5-5.1); SODIUM SERUM 133 mmol/L (136-145); UREA NITROGEN, BLOOD 47 mg/dL (7-18)
[2023-07-29 00:03] LABS: PARTIAL THROMBOPLASTIN TIME 63.5 SEC (24.3-34.3); PROTHROMBIN TIME 47.4 SECS (9.2-11.1)
[2023-07-29 00:04] LABS: INR 4.97 (0.91-1.10)
[2023-07-29 00:07] LABS: ALANINE AMINOTRANSFERASE 17 U/L (12-78); ALBUMIN 2.7 g/dL (3.4-5.0); ALKALINE PHOSPHATASE 99 U/L (46-116); ASPARTATE AMINOTRANSFERASE 41 U/L (15-37); BILIRUBIN,DIRECT 0.2 mg/dL (0.0-0.2); BILIRUBIN,TOTAL 0.8 mg/dL (0.2-1.0); LIPASE 17 U/L (16-77); TOTAL PROTEIN, SERUM 6.3 g/dL (6.4-8.2)
[2023-07-29 00:10] LABS: LACTIC ACID 1.7 mmol/L (0.4-2.0)
[2023-07-29] MEDS ORDERED: IOHEXOL-350 100 ML VIAL IV ONE (00:22)
[2023-07-29] MEDS ORDERED: CT SWABBABLE VALVE TRANS SET 1 EA INFUS.SET MC ONE (00:22)
[2023-07-29] MEDS ORDERED: IV NS 0.9% 250 ML IV ONE (00:22)
[2023-07-29 00:49] LABS: ANISOCYTOSIS 1+; BASOPHILS % (MANUAL) 0 % (0.0-2.0); EOSINOPHILS % (MANUAL) 4 % (0-4); HYPOCHROMASIA 1+; LYMPHOCYTES % (MANUAL) 11 % (16-48); MONOCYTES % (MANUAL) 10 % (0-11.0); NEUTROPHILS % (MANUAL) 75 (42-76); OVALOCYTES 1+; PLATELET ESTIMATE ADEQUATE
[2023-07-29] MEDS ORDERED: ONDANSETRON HCL/PF 4 MG/2 ML VIAL IVP PRN (03:00)
[2023-07-29] MEDS ORDERED: Z GUARD REMEDY 4 OZ OINT TP PRN (03:00)
[2023-07-29] MEDS ORDERED: HYDROCODONE/APAP 5/325MG TABLET PO PRN (03:00)
[2023-07-29] MEDS: ACETAMINOPHEN 325 MG TABLET PO PRN (04:06)
[2023-07-29 06:53] LABS: BASOPHILS % (AUTO) 0.3 % (0.0-2.0); EOSINOPHILS % (AUTO) 0.5 % (0.0-6.0); LYMPHOCYTES # (AUTO) 0.4 K/uL (0.8-4.8); LYMPHOCYTES % (AUTO) 6.1 % (20.0-44.0); MEAN CORPUSCULAR HEMOGLOBIN 30 PG (26.0-33.0); MEAN CORPUSCULAR HGB CONC 34 g/dl (31.0-36.0); MEAN CORPUSCULAR VOLUME 89 fL (80-96); MONOCYTES # (AUTO) 0.6 K/uL (0.1-1.30); MONOCYTES % (AUTO) 9.2 % (2.0-12.0); NEUTROPHILS # (AUTO) 5.2 K/uL (1.8-8.9); NEUTROPHILS % (AUTO) 83.9 % (43.0-81.0); PLATELET COUNT (AUTO) 129 K/uL (150-450); RED CELL DISTRIBUTION WIDTH 17.3 % (11.5-15.0); WHITE BLOOD COUNT (AUTO) 6.2 K/uL (4.3-11.0)
[2023-07-29 06:55] LABS: RED BLOOD CELL COUNT(AUTO) 1.59 MIL/uL (4.5-6.0)
[2023-07-29 06:58] LABS: HEMATOCRIT 14 % (39-51); HEMOGLOBIN 4.8 g/dL (13.5-17.5)
[2023-07-29 07:11] LABS: OCCULT BLOOD STOOL POSITIVE (NEGATIVE)
[2023-07-29] MEDS: PANTOPRAZOLE 40 MG TABLET.DR PO SCH (08:11)
[2023-07-29 10:10] LABS: ANISOCYTOSIS 1+; BAND % (MANUAL) 2 % (0.0-5.0); BASOPHILS % (MANUAL) 0 % (0.0-2.0); EOSINOPHILS % (MANUAL) 1 % (0-4); HYPOCHROMASIA 1+; LYMPHOCYTES % (MANUAL) 4 % (16-48); MONOCYTES % (MANUAL) 6 % (0-11.0); NEUTROPHILS % (MANUAL) 87 (42-76); PLATELET ESTIMATE DECREASED
[2023-07-29] MEDS ORDERED: IPRA0.2S49 IH (10:15)
[2023-07-29] MEDS ORDERED: LEVE250T2 PO (10:15)
[2023-07-29] MEDS ORDERED: WARF3TAB59 PO (10:15)
[2023-07-29] MEDS ORDERED: CHOL400T15 PO (10:15)
[2023-07-29] MEDS: ZOSYN IVPB 2.25 G in IV D5W 50ml IV SCH (10:52)
[2023-07-29] MEDS: PANTOPRAZOLE 40 MG VIAL IV SCH (10:52)
[2023-07-29] MEDS ORDERED: DEXTROSE 50%-WATER 50 ML DISP.SYRIN IV PRN (11:00)
[2023-07-29] MEDS: BLOOD SUGAR DIAGNOSTIC 1 EACH STRIP IN SCH (11:53)
[2023-07-29] MEDS ORDERED: PIPERACILLIN /TAZOBACTAM 2.25 G in IV D5W 50 ML IV SCH (12:00)
[2023-07-29] MEDS ORDERED: EPOETIN ALFA (20,000 UNIT) 20,000 UNIT/ML VIAL SQ ONE (12:30)
[2023-07-29] MEDS: AMIODARONE HCL 200 MG TABLET PO SCH (15:00)
[2023-07-29] MEDS: EPOETIN ALFA (10,000 UNIT) 10,000 UNIT/ML VIAL SQ ONE (15:29)
[2023-07-29] MEDS: PROSTAT (PYXIS) 30 ML UDC PO SCH (16:38)
[2023-07-29] MEDS: DORZOLAMIDE OPTH 2% 10 ML BOTTLE EACHEYE SCH (16:40)
[2023-07-29 17:00] LABS: BASOPHILS % (AUTO) 0.2 % (0.0-2.0); EOSINOPHILS # (AUTO) 0.1 K/uL (0.0-0.7); EOSINOPHILS % (AUTO) 0.7 % (0.0-6.0); LYMPHOCYTES # (AUTO) 0.6 K/uL (0.8-4.8); MEAN CORPUSCULAR HEMOGLOBIN 31 PG (26.0-33.0); MEAN CORPUSCULAR HGB CONC 35 g/dl (31.0-36.0); MEAN CORPUSCULAR VOLUME 89 fL (80-96); MONOCYTES # (AUTO) 0.7 K/uL (0.1-1.30); MONOCYTES % (AUTO) 8.9 % (2.0-12.0); NEUTROPHILS % (AUTO) 83.2 % (43.0-81.0); PLATELET COUNT (AUTO) 134 K/uL (150-450); RED BLOOD CELL COUNT(AUTO) 2.09 MIL/uL (4.5-6.0); RED CELL DISTRIBUTION WIDTH 15.9 % (11.5-15.0); WHITE BLOOD COUNT (AUTO) 8.4 K/uL (4.3-11.0)
[2023-07-29 17:07] LABS: HEMOGLOBIN 6.5 g/dL (13.5-17.5)
[2023-07-29 17:08] LABS: HEMATOCRIT 19 % (39-51)
[2023-07-29 17:15] LABS: INR 2.48 (0.91-1.10); PARTIAL THROMBOPLASTIN TIME 47.6 SEC (24.3-34.3); PROTHROMBIN TIME 24.8 SECS (9.2-11.1)
[2023-07-29] MEDS: SEVELAMER CARBONATE 800 MG TABLET PO SCH (17:22)
[2023-07-29 17:42] LABS: ANISOCYTOSIS 1+; LYMPHOCYTES % (MANUAL) 2 % (16-48); MONOCYTES % (MANUAL) 6 % (0-11.0); NEUTROPHILS % (MANUAL) 92 (42-76); PLATELET ESTIMATE DECREASED
[2023-07-29] MEDS: LEVETIRACETAM (500MG) 250 MG in IV NS 0.9% 100 ML IV SCH (21:08)
[2023-07-29] MEDS: ATORVASTATIN 10 MG TABLET PO SCH (22:00)
[2023-07-30] VITALS (45 sets, daily range): BP systolic 120–198; BP diastolic 48–121; TEMP 97.5–99; O2SAT 85–100
[2023-07-30] MEDS: INSULIN REGULAR, HUMAN 100 UNIT/ML 3 ML VIAL SQ PRN (00:10)
[2023-07-30] MEDS: IPRATROPIUM NEB FS 0.5 MG/2.5 ML AMPUL.NEB IH SCH (01:48)
[2023-07-30 03:38] LABS: BASOPHILS % (AUTO) 0.4 % (0.0-2.0); EOSINOPHILS # (AUTO) 0.3 K/uL (0.0-0.7); EOSINOPHILS % (AUTO) 3.5 % (0.0-6.0); HEMATOCRIT 26 % (39-51); LYMPHOCYTES # (AUTO) 0.7 K/uL (0.8-4.8); LYMPHOCYTES % (AUTO) 9.2 % (20.0-44.0); MEAN CORPUSCULAR HEMOGLOBIN 31 PG (26.0-33.0); MEAN CORPUSCULAR HGB CONC 35 g/dl (31.0-36.0); MEAN CORPUSCULAR VOLUME 90 fL (80-96); MONOCYTES # (AUTO) 0.9 K/uL (0.1-1.30); MONOCYTES % (AUTO) 11.7 % (2.0-12.0); NEUTROPHILS # (AUTO) 5.8 K/uL (1.8-8.9); NEUTROPHILS % (AUTO) 75.2 % (43.0-81.0); PLATELET COUNT (AUTO) 121 K/uL (150-450); RED BLOOD CELL COUNT(AUTO) 2.89 MIL/uL (4.5-6.0); RED CELL DISTRIBUTION WIDTH 15.9 % (11.5-15.0); WHITE BLOOD COUNT (AUTO) 7.7 K/uL (4.3-11.0)
[2023-07-30 03:50] LABS: CALCIUM, SERUM 8.3 mg/dL (8.5-10.1); CARBON DIOXIDE 25 mmol/L (21-32); CHLORIDE 99 mmol/L (98-107); CREATININE 7.3 mg/dL (0.6-1.3); GLUCOSE 89 mg/dL (74-106); PHOSPHORUS 7.4 mg/dL (2.5-4.9); POTASSIUM 4.7 mmol/L (3.5-5.1); SODIUM SERUM 138 mmol/L (136-145); UREA NITROGEN, BLOOD 63 mg/dL (7-18)
[2023-07-30 03:51] LABS: INR 2.09 (0.91-1.10); PARTIAL THROMBOPLASTIN TIME 45.5 SEC (24.3-34.3); PROTHROMBIN TIME 21.1 SECS (9.2-11.1)
[2023-07-30 04:02] LABS: CHOLESTEROL 87 mg/dL (<200); HDL CHOLESTEROL 32 mg/dL (40-60); LDL 32 mg/dL (0-99); THYROID STIMULATING HORMONE 6.358 uIU/mL (0.358-3.74); TRIGLYCERIDES 135 mg/dL (30-150)
[2023-07-30 04:50] LABS: IRON, SERUM 28 ug/dl (50-175); TOTAL IRON BINDING CAPACITY 117 ug/dl (250-450)
[2023-07-30] MEDS: CHOLECALCIFEROL (VITAMIN D 3) 400 UNIT TABLET PO SCH (08:19)
[2023-07-30] MEDS: VIT B CMPLX 3/FA/VIT C/BIOTIN 1 TAB TABLET PO SCH (08:19)
[2023-07-30] MEDS: PANTOPRAZOLE 40 MG VIAL IV SCH (08:27)
[2023-07-30] MEDS: PEG 3350/NA SULF,BICARB,CL/KCL 4,000 ML BOTTLE PO ONE (08:34)
[2023-07-30] MEDS: hydrALAZINE HCL IV 20 MG VIAL IV PRN (09:56)
[2023-07-30 18:00] LABS: HEMOGLOBIN 9.5 g/dL (13.5-17.5)
[2023-07-30 18:22] LABS: RHEUMATOID FACTOR SCREEN NEGATIVE (NEGATIVE)
[2023-07-30] MEDS: LEVETIRACETAM SOL (5 ML) 100 MG/ML UDC PO SCH (21:01)
[2023-07-31] VITALS (37 sets, daily range): BP systolic 132–198; BP diastolic 49–154; TEMP 97.5–98.6; O2SAT 95–100
[2023-07-31 06:21] LABS: BASOPHILS % (AUTO) 0.5 % (0.0-2.0); EOSINOPHILS # (AUTO) 0.5 K/uL (0.0-0.7); EOSINOPHILS % (AUTO) 7.9 % (0.0-6.0); HEMATOCRIT 26 % (39-51); HEMOGLOBIN 9.1 g/dL (13.5-17.5); LYMPHOCYTES # (AUTO) 0.6 K/uL (0.8-4.8); LYMPHOCYTES % (AUTO) 9.7 % (20.0-44.0); MEAN CORPUSCULAR HEMOGLOBIN 32 PG (26.0-33.0); MEAN CORPUSCULAR HGB CONC 35 g/dl (31.0-36.0); MEAN CORPUSCULAR VOLUME 90 fL (80-96); MONOCYTES # (AUTO) 0.6 K/uL (0.1-1.30); MONOCYTES % (AUTO) 10.3 % (2.0-12.0); NEUTROPHILS # (AUTO) 4.5 K/uL (1.8-8.9); NEUTROPHILS % (AUTO) 71.6 % (43.0-81.0); PLATELET COUNT (AUTO) 123 K/uL (150-450); RED BLOOD CELL COUNT(AUTO) 2.87 MIL/uL (4.5-6.0); RED CELL DISTRIBUTION WIDTH 16.1 % (11.5-15.0); WHITE BLOOD COUNT (AUTO) 6.3 K/uL (4.3-11.0)
[2023-07-31 06:31] LABS: INR 2.12 (0.91-1.10); PARTIAL THROMBOPLASTIN TIME 51.8 SEC (24.3-34.3); PROTHROMBIN TIME 21.4 SECS (9.2-11.1)
[2023-07-31 07:11] LABS: CALCIUM, SERUM 8.4 mg/dL (8.5-10.1); CARBON DIOXIDE 28 mmol/L (21-32); CHLORIDE 97 mmol/L (98-107); CREATININE 5.7 mg/dL (0.6-1.3); GLUCOSE 80 mg/dL (74-106); MAGNESIUM 1.9 mg/dL (1.8-2.4); PHOSPHORUS 5.2 mg/dL (2.5-4.9); SODIUM SERUM 138 mmol/L (136-145); UREA NITROGEN, BLOOD 30 mg/dL (7-18)
[2023-07-31 08:06] LABS: IMMUNOGLOBULIN A, SERUM 240 mg/dL (61-437); IMMUNOGLOBULIN G, SERUM 974 mg/dL (603-1613); IMMUNOGLOBULIN M, SERUM 49 mg/dL (15-143)
[2023-07-31 10:10] LABS: *SPE A/G RATIO 1.1 (0.7-1.7); *SPE ALBUMIN 2.8 g/dL (2.9-4.4); *SPE ALPHA-1-GLOBULIN 0.3 g/dL (0.0-0.4); *SPE ALPHA-2-GLOBULIN 0.6 g/dL (0.4-1.0); *SPE BETA GLOBULIN 0.6 g/dL (0.7-1.3); *SPE GLOBULIN, TOTAL 2.6 g/dL (2.2-3.9); *SPE M-SPIKE Not Observed g/dL (Not Observed); *SPE PROTEIN TOTAL 5.4 g/dL (6.0-8.5); *SPEGAMMA GLOBULIN 1.1 g/dL (0.4-1.8)
[2023-07-31 12:08] LABS: *ANA ANTI-CENTROMERE B AB <0.2 AI (0.0-0.9); *ANA ANTI-DNA(DS) AB, QN 1 IU/mL (0-9); *ANA ANTI-JO-1 <0.2 AI (0.0-0.9); *ANA ANTICHROMATIN ANTIBODY <0.2 AI (0.0-0.9); *ANA RNP ANTIBODIES <0.2 AI (0.0-0.9); *ANA SJOGREN'S ANTI-SS-A <0.2 AI (0.0-0.9); *ANA SJOGREN'S ANTI-SS-B <0.2 AI (0.0-0.9); *ANAANTI-SCLERODERMA-70 AB 0.4 AI (0.0-0.9); *ANASMITH AB <0.2 AI (0.0-0.9); FREE KAPPA LT CHAINS SERUM 248.9 mg/L (3.3-19.4); FREE LAMBDA LT CHAIN SERUM 257.4 mg/L (5.7-26.3); KAPPA/LAMBDA RATIO SERUM 0.97 (0.26-1.65)
[2023-07-31 13:11] LABS: HEPATITIS B SURFACE AB Reactive (.)
[2023-07-31] MEDS: COLCHICINE 0.6 MG TABLET PO SCH (14:37)
[2023-08-01] VITALS (31 sets, daily range): BP systolic 111–186; BP diastolic 33–86; TEMP 97.6–98.5; O2SAT 95–100
[2023-08-01 02:06] LABS: FOLIC ACID 11.9 ng/mL (>3.0)
[2023-08-01 10:57] LABS: BASOPHILS % (AUTO) 0.7 % (0.0-2.0); EOSINOPHILS # (AUTO) 0.5 K/uL (0.0-0.7); EOSINOPHILS % (AUTO) 6.6 % (0.0-6.0); HEMATOCRIT 28 % (39-51); HEMOGLOBIN 9.6 g/dL (13.5-17.5); LYMPHOCYTES # (AUTO) 0.8 K/uL (0.8-4.8); LYMPHOCYTES % (AUTO) 10.7 % (20.0-44.0); MEAN CORPUSCULAR HEMOGLOBIN 31 PG (26.0-33.0); MEAN CORPUSCULAR HGB CONC 34 g/dl (31.0-36.0); MEAN CORPUSCULAR VOLUME 92 fL (80-96); MONOCYTES # (AUTO) 0.6 K/uL (0.1-1.30); MONOCYTES % (AUTO) 7.8 % (2.0-12.0); NEUTROPHILS # (AUTO) 5.5 K/uL (1.8-8.9); NEUTROPHILS % (AUTO) 74.2 % (43.0-81.0); PLATELET COUNT (AUTO) 160 K/uL (150-450); RED BLOOD CELL COUNT(AUTO) 3.07 MIL/uL (4.5-6.0); RED CELL DISTRIBUTION WIDTH 16.2 % (11.5-15.0); WHITE BLOOD COUNT (AUTO) 7.4 K/uL (4.3-11.0)
[2023-08-01 11:20] LABS: CALCIUM, SERUM 8.5 mg/dL (8.5-10.1); CARBON DIOXIDE 24 mmol/L (21-32); CHLORIDE 97 mmol/L (98-107); GLUCOSE 64 mg/dL (74-106); PHOSPHORUS 6.8 mg/dL (2.5-4.9); SODIUM SERUM 138 mmol/L (136-145); UREA NITROGEN, BLOOD 37 mg/dL (7-18)
[2023-08-01 11:28] LABS: CREATININE 8.1 mg/dL (0.6-1.3)
[2023-08-01] MEDS: IV D5/ 0.9% NACL 1,000 ML IV PRN (13:10)
[2023-08-01] MEDS ORDERED: DEXTROSE 50%-WATER 50 ML DISP.SYRIN IV PRN (18:30)
[2023-08-01] MEDS: BLOOD SUGAR DIAGNOSTIC 1 EACH STRIP IN SCH (22:53)
[2023-08-02] VITALS (14 sets, daily range): BP systolic 145–156; BP diastolic 54–64; TEMP 97.7–99; O2SAT 94–100
[2023-08-02 06:23] LABS: BASOPHILS % (AUTO) 0.6 % (0.0-2.0); EOSINOPHILS # (AUTO) 0.5 K/uL (0.0-0.7); EOSINOPHILS % (AUTO) 9.1 % (0.0-6.0); HEMATOCRIT 26 % (39-51); HEMOGLOBIN 8.9 g/dL (13.5-17.5); LYMPHOCYTES # (AUTO) 0.6 K/uL (0.8-4.8); LYMPHOCYTES % (AUTO) 9.5 % (20.0-44.0); MEAN CORPUSCULAR HEMOGLOBIN 31 PG (26.0-33.0); MEAN CORPUSCULAR HGB CONC 34 g/dl (31.0-36.0); MEAN CORPUSCULAR VOLUME 91 fL (80-96); MONOCYTES # (AUTO) 0.6 K/uL (0.1-1.30); MONOCYTES % (AUTO) 9.6 % (2.0-12.0); NEUTROPHILS # (AUTO) 4.3 K/uL (1.8-8.9); NEUTROPHILS % (AUTO) 71.2 % (43.0-81.0); PLATELET COUNT (AUTO) 164 K/uL (150-450); RED BLOOD CELL COUNT(AUTO) 2.82 MIL/uL (4.5-6.0); RED CELL DISTRIBUTION WIDTH 16.4 % (11.5-15.0)
[2023-08-02 06:41] LABS: INR 2.61 (0.91-1.10)
[2023-08-02 06:58] LABS: CALCIUM, SERUM 8.3 mg/dL (8.5-10.1); CARBON DIOXIDE 28 mmol/L (21-32); CHLORIDE 99 mmol/L (98-107); CREATININE 5.3 mg/dL (0.6-1.3); GLUCOSE 100 mg/dL (74-106); MAGNESIUM 1.9 mg/dL (1.8-2.4); PHOSPHORUS 3.9 mg/dL (2.5-4.9); POTASSIUM 3.1 mmol/L (3.5-5.1); SODIUM SERUM 140 mmol/L (136-145); UREA NITROGEN, BLOOD 19 mg/dL (7-18)
[2023-08-02] MEDS: PANTOPRAZOLE 40 MG/PACK PACK PO SCH (21:18)
[2023-08-03] VITALS (14 sets, daily range): BP systolic 140–160; BP diastolic 54–84; TEMP 97.7–98.8; O2SAT 96–100
[2023-08-03 07:13] LABS: BASOPHILS % (AUTO) 0.5 % (0.0-2.0); EOSINOPHILS # (AUTO) 0.6 K/uL (0.0-0.7); EOSINOPHILS % (AUTO) 8.1 % (0.0-6.0); HEMATOCRIT 26 % (39-51); HEMOGLOBIN 8.6 g/dL (13.5-17.5); LYMPHOCYTES # (AUTO) 0.9 K/uL (0.8-4.8); LYMPHOCYTES % (AUTO) 12.3 % (20.0-44.0); MEAN CORPUSCULAR HEMOGLOBIN 31 PG (26.0-33.0); MEAN CORPUSCULAR HGB CONC 33 g/dl (31.0-36.0); MEAN CORPUSCULAR VOLUME 93 fL (80-96); MONOCYTES # (AUTO) 0.6 K/uL (0.1-1.30); MONOCYTES % (AUTO) 8.2 % (2.0-12.0); NEUTROPHILS % (AUTO) 70.9 % (43.0-81.0); PLATELET COUNT (AUTO) 172 K/uL (150-450); RED CELL DISTRIBUTION WIDTH 16.1 % (11.5-15.0); WHITE BLOOD COUNT (AUTO) 7.1 K/uL (4.3-11.0)
[2023-08-03 07:25] LABS: INR 2.14 (0.91-1.10); PROTHROMBIN TIME 21.6 SECS (9.2-11.1)
[2023-08-03 08:16] LABS: CHLORIDE 98 mmol/L (98-107); POTASSIUM 3.4 mmol/L (3.5-5.1); SODIUM SERUM 138 mmol/L (136-145)
[2023-08-03 08:17] LABS: CALCIUM, SERUM 8.3 mg/dL (8.5-10.1); CARBON DIOXIDE 26 mmol/L (21-32); GLUCOSE 80 mg/dL (74-106); MAGNESIUM 1.9 mg/dL (1.8-2.4); UREA NITROGEN, BLOOD 27 mg/dL (7-18)
[2023-08-03 08:18] LABS: CREATININE 7.5 mg/dL (0.6-1.3); PHOSPHORUS 4.9 mg/dL (2.5-4.9)
[2023-08-03] MEDS: POTASSIUM CHLORIDE 10 MEQ TABLET.SA PO ONE (10:06)
[2023-08-03] MEDS: WARFARIN SODIUM 1 MG TABLET PO SCH (16:44)
[2023-08-03] MEDS: LEVETIRACETAM (250 MG) 250 MG TABLET PO SCH (21:05)
[2023-08-03] MEDS: INSULIN REGULAR, HUMAN 100 UNIT/ML 3 ML VIAL SQ PRN (21:36)
[2023-08-04] VITALS (12 sets, daily range): BP systolic 138–165; BP diastolic 61–73; TEMP 97.7–99; O2SAT 96–100
[2023-08-04 07:24] LABS: BASOPHILS # (AUTO) 0.1 K/uL (0.0-0.2); BASOPHILS % (AUTO) 0.7 % (0.0-2.0); EOSINOPHILS # (AUTO) 0.7 K/uL (0.0-0.7); EOSINOPHILS % (AUTO) 8.5 % (0.0-6.0); HEMATOCRIT 27 % (39-51); HEMOGLOBIN 8.9 g/dL (13.5-17.5); LYMPHOCYTES # (AUTO) 0.9 K/uL (0.8-4.8); LYMPHOCYTES % (AUTO) 10.7 % (20.0-44.0); MEAN CORPUSCULAR HEMOGLOBIN 31 PG (26.0-33.0); MEAN CORPUSCULAR HGB CONC 34 g/dl (31.0-36.0); MEAN CORPUSCULAR VOLUME 92 fL (80-96); MONOCYTES # (AUTO) 0.5 K/uL (0.1-1.30); NEUTROPHILS # (AUTO) 6.1 K/uL (1.8-8.9); NEUTROPHILS % (AUTO) 74.1 % (43.0-81.0); PLATELET COUNT (AUTO) 184 K/uL (150-450); RED CELL DISTRIBUTION WIDTH 16.2 % (11.5-15.0); WHITE BLOOD COUNT (AUTO) 8.2 K/uL (4.3-11.0)
[2023-08-04 07:40] LABS: INR 1.93 (0.91-1.10); PARTIAL THROMBOPLASTIN TIME 45.3 SEC (24.3-34.3); PROTHROMBIN TIME 19.6 SECS (9.2-11.1)
[2023-08-04 08:28] LABS: CALCIUM, SERUM 8.3 mg/dL (8.5-10.1); CARBON DIOXIDE 26 mmol/L (21-32); CHLORIDE 96 mmol/L (98-107); GLUCOSE 71 mg/dL (74-106); POTASSIUM 3.6 mmol/L (3.5-5.1); SODIUM SERUM 138 mmol/L (136-145); UREA NITROGEN, BLOOD 33 mg/dL (7-18)
[2023-08-04 08:55] LABS: CREATININE 9.2 mg/dL (0.6-1.3)
[2023-08-04] MEDS: ZOSYN IVPB 2.25 G in IV D5W 50ml IV SCH (12:40)
[2023-08-04] MEDS: WARFARIN SODIUM 1 MG TABLET PO SCH (16:10)
[2023-08-05] VITALS (10 sets, daily range): BP systolic 148–185; BP diastolic 53–73; TEMP 98.3–98.4; O2SAT 96–100
[2023-08-05 07:24] LABS: CALCIUM, SERUM 8.4 mg/dL (8.5-10.1); CARBON DIOXIDE 29 mmol/L (21-32); CHLORIDE 99 mmol/L (98-107); GLUCOSE 77 mg/dL (74-106); MAGNESIUM 2.1 mg/dL (1.8-2.4); PHOSPHORUS 4.7 mg/dL (2.5-4.9); POTASSIUM 3.6 mmol/L (3.5-5.1); SODIUM SERUM 140 mmol/L (136-145); UREA NITROGEN, BLOOD 25 mg/dL (7-18)
[2023-08-05 07:29] LABS: BASOPHILS % (AUTO) 0.5 % (0.0-2.0); EOSINOPHILS # (AUTO) 0.7 K/uL (0.0-0.7); HEMATOCRIT 26 % (39-51); HEMOGLOBIN 8.8 g/dL (13.5-17.5); LYMPHOCYTES # (AUTO) 0.6 K/uL (0.8-4.8); LYMPHOCYTES % (AUTO) 8.1 % (20.0-44.0); MEAN CORPUSCULAR HEMOGLOBIN 31 PG (26.0-33.0); MEAN CORPUSCULAR HGB CONC 34 g/dl (31.0-36.0); MEAN CORPUSCULAR VOLUME 91 fL (80-96); MONOCYTES # (AUTO) 0.6 K/uL (0.1-1.30); MONOCYTES % (AUTO) 7.7 % (2.0-12.0); NEUTROPHILS # (AUTO) 5.8 K/uL (1.8-8.9); NEUTROPHILS % (AUTO) 74.7 % (43.0-81.0); PLATELET COUNT (AUTO) 167 K/uL (150-450); RED BLOOD CELL COUNT(AUTO) 2.83 MIL/uL (4.5-6.0); RED CELL DISTRIBUTION WIDTH 16.3 % (11.5-15.0); WHITE BLOOD COUNT (AUTO) 7.8 K/uL (4.3-11.0)
[2023-08-05 07:37] LABS: INR 3.04 (0.91-1.10); PARTIAL THROMBOPLASTIN TIME 51.1 SEC (24.3-34.3)
[2023-08-05 07:57] LABS: CREATININE 7.9 mg/dL (0.6-1.3)
[2023-08-05] MEDS: PROSOURCE / PROSTAT (PYXIS) 30 ML UDC PO SCH (08:36)
== END 2023-08-05 16:58 | DRG 377 ==
LOC: ER 22:24 → TELE1 07-29 01:04 → ICU 07-29 09:21 → TELE1 08-01 20:04 → MEDSG1 08-04 11:59
PROVIDERS: ADMIT Nurse Practitioner Acute Care
PROC: 05H933Z Insertion of Infusion Device into Right Brachial Vein, Percutaneous Approach (ICD-10-PCS; principal; 2023-07-29)
PROC: 30233K1 Transfusion of Nonautologous Frozen Plasma into Peripheral Vein, Percutaneous Approach (ICD-10-PCS; 2023-07-29)
PROC: 30233N1 Transfusion of Nonautologous Red Blood Cells into Peripheral Vein, Percutaneous Approach (ICD-10-PCS; 2023-07-29)
PROC: 5A1D70Z Performance of Urinary Filtration, Intermittent, Less than 6 Hours Per Day (ICD-10-PCS; 2023-07-30)
PROC: 0DB98ZX Excision of Duodenum, Via Natural or Artificial Opening Endoscopic, Diagnostic (ICD-10-PCS; 2023-07-31)
PROC: 0DJD8ZZ Inspection of Lower Intestinal Tract, Via Natural or Artificial Opening Endoscopic (ICD-10-PCS; 2023-07-31)
DX: K29.71 Gastritis, unspecified, with bleeding (principal); I21.A1 Myocardial infarction type 2; N18.6 End stage renal disease; I13.2 Hypertensive heart and chronic kidney disease with heart failure and with stage 5 chronic kidney disease, or end stage renal disease; I50.32 Chronic diastolic (congestive) heart failure; D68.59 Other primary thrombophilia; E44.0 Moderate protein-calorie malnutrition; D61.818 Other pancytopenia; R65.10 Systemic inflammatory response syndrome (SIRS) of non-infectious origin without acute organ dysfunction; K81.0 Acute cholecystitis; E87.1 Hypo-osmolality and hyponatremia; D68.9 Coagulation defect, unspecified; K64.8 Other hemorrhoids; G40.909 Epilepsy, unspecified, not intractable, without status epilepticus; I48.91 Unspecified atrial fibrillation; K57.90 Diverticulosis of intestine, part unspecified, without perforation or abscess without bleeding; Z95.2 Presence of prosthetic heart valve; Z95.0 Presence of cardiac pacemaker; Z99.2 Dependence on renal dialysis; I25.2 Old myocardial infarction; E11.51 Type 2 diabetes mellitus with diabetic peripheral angiopathy without gangrene; E11.22 Type 2 diabetes mellitus with diabetic chronic kidney disease; E78.5 Hyperlipidemia, unspecified; Z79.01 Long term (current) use of anticoagulants; Z79.51 Long term (current) use of inhaled steroids; Z79.82 Long term (current) use of aspirin; E88.09 Other disorders of plasma-protein metabolism, not elsewhere classified; E83.52 Hypercalcemia; N28.89 Other specified disorders of kidney and ureter; M89.8X9 Other specified disorders of bone, unspecified site; Z74.01 Bed confinement status; N28.1 Cyst of kidney, acquired; Z79.899 Other long term (current) drug therapy; Z87.891 Personal history of nicotine dependence; I34.0 Nonrheumatic mitral (valve) insufficiency; K82.8 Other specified diseases of gallbladder; E87.6 Hypokalemia
CPT/HCPCS: 36415; 71260-TC; 76770-TC; 78226; 80048-TC; 80061-TC; 80076-TC; 82272-TC; 82607-TC; 82728-TC; 82784; 82962-TC; 83540-TC; 83605-TC; 83615-TC; 83690-TC; 83735-TC; 84100-TC; 84155; 84165; 84439-TC; 84443-TC; 84484-TC; 85025-TC; 85027-TC; 85610-TC; 85652-TC; 85730-TC; 86225; 86235; 86334; 86431-TC; 86706; 86803; 86850-TC; 87081-TC; 87340; 90935-TC; 94799-TC; A4223; A9537; C9113; G0378; J0360; J0885; J1815; J1953; J2543; J2704; J3490; J7030; J7040; J7042; J7050; J7060; P9016; P9017; Q9967

== ENCOUNTER 2023-08-30 22:51 | Inpatient (IN) | payer MEDICARE, OTHER ==
[~2023-08-30] VITALS: Ht 165.1 cm; Wt 64.9 kg
[~2023-08-30 22:51] MED LIST changes: -AMOX-427 PO; -CHOL100043 PO; +CHOL400T15 PO; +IPRA0.2S49 IH; -IPRA3AMP22 IH; -LEVE100S PO; +LEVE250T2 PO; -OMEP20CA15 PO; +WARF3TAB59 PO; -WARF6TAB49 PO
[2023-08-30 23:43] LABS: BASOPHILS % (AUTO) 0.8 % (0.0-2.0); EOSINOPHILS # (AUTO) 0.5 K/uL (0.0-0.7); EOSINOPHILS % (AUTO) 8.4 % (0.0-6.0); HEMATOCRIT 21 % (39-51); LYMPHOCYTES # (AUTO) 0.7 K/uL (0.8-4.8); LYMPHOCYTES % (AUTO) 12.6 % (20.0-44.0); MEAN CORPUSCULAR HEMOGLOBIN 30 PG (26.0-33.0); MEAN CORPUSCULAR HGB CONC 33 g/dl (31.0-36.0); MEAN CORPUSCULAR VOLUME 92 fL (80-96); MONOCYTES # (AUTO) 0.7 K/uL (0.1-1.30); MONOCYTES % (AUTO) 11.8 % (2.0-12.0); NEUTROPHILS # (AUTO) 3.7 K/uL (1.8-8.9); NEUTROPHILS % (AUTO) 66.4 % (43.0-81.0); PLATELET COUNT (AUTO) 201 K/uL (150-450); RED BLOOD CELL COUNT(AUTO) 2.22 MIL/uL (4.5-6.0); RED CELL DISTRIBUTION WIDTH 19.2 % (11.5-15.0); WHITE BLOOD COUNT (AUTO) 5.5 K/uL (4.3-11.0)
[2023-08-30 23:46] LABS: HEMOGLOBIN 6.7 g/dL (13.5-17.5)
[2023-08-30 23:51] LABS: CALCIUM, SERUM 9.1 mg/dL (8.5-10.1); CARBON DIOXIDE 33 mmol/L (21-32); CHLORIDE 94 mmol/L (98-107); GLUCOSE 99 mg/dL (74-106); POTASSIUM 3.8 mmol/L (3.5-5.1); SODIUM SERUM 134 mmol/L (136-145); UREA NITROGEN, BLOOD 48 mg/dL (7-18)
[2023-08-31] VITALS (11 sets, daily range): BP systolic 151–177; BP diastolic 57–95; TEMP 97.7–98.4; O2SAT 98–99
[2023-08-31 00:04] LABS: ALANINE AMINOTRANSFERASE 37 U/L (12-78); ALBUMIN 2.6 g/dL (3.4-5.0); ALKALINE PHOSPHATASE 194 U/L (46-116); ASPARTATE AMINOTRANSFERASE 30 U/L (15-37); BILIRUBIN,TOTAL 0.4 mg/dL (0.2-1.0); NT-PRO BNP > 25000 pg/mL (0-125); TOTAL PROTEIN, SERUM 7.1 g/dL (6.4-8.2)
[2023-08-31 00:09] LABS: INR 2.53 (0.91-1.10); PROTHROMBIN TIME 25.2 SECS (9.2-11.1)
[2023-08-31 00:10] LABS: CREATININE 8.2 mg/dL (0.6-1.3)
[2023-08-31 00:20] LABS: LACTIC ACID 0.7 mmol/L (0.4-2.0)
[2023-08-31] MEDS ORDERED: ZOLPIDEM TARTRATE 5 MG TABLET PO PRN (00:30)
[2023-08-31] MEDS ORDERED: ACETAMINOPHEN 325 MG TABLET PO PRN ×2 (00:30→20:00)
[2023-08-31] MEDS ORDERED: ONDANSETRON HCL/PF 4 MG/2 ML VIAL IVP PRN (00:30)
[2023-08-31] MEDS ORDERED: Z GUARD REMEDY 4 OZ OINT TP PRN (00:30)
[2023-08-31] MEDS ORDERED: MAGNESIUM HYDROXIDE 30 ML UDC PO PRN (00:30)
[2023-08-31] MEDS ORDERED: MAG HYDROX/AL HYDROX/SIMETH 30 ML UDC PO PRN (00:30)
[2023-08-31 02:28] LABS: ANISOCYTOSIS 1+; EOSINOPHILS % (MANUAL) 10 % (0-4); LYMPHOCYTES % (MANUAL) 17 % (16-48); MONOCYTES % (MANUAL) 8 % (0-11.0); NEUTROPHILS % (MANUAL) 65 (42-76); OVALOCYTES 1+; PLATELET ESTIMATE ADEQUATE
[2023-08-31] MEDS: PANTOPRAZOLE 40 MG TABLET.DR PO SCH (07:52)
[2023-08-31] MEDS ORDERED: *INS REG3 SQ (08:32)
[2023-08-31] MEDS ORDERED: OMEP20CA15 PO (08:32)
[2023-08-31] MEDS ORDERED: WARF1TAB86 PO (08:32)
[2023-08-31 15:45] LABS: BASOPHILS % (AUTO) 0.7 % (0.0-2.0); EOSINOPHILS # (AUTO) 0.3 K/uL (0.0-0.7); EOSINOPHILS % (AUTO) 5.1 % (0.0-6.0); HEMATOCRIT 26 % (39-51); HEMOGLOBIN 8.2 g/dL (13.5-17.5); LYMPHOCYTES # (AUTO) 0.6 K/uL (0.8-4.8); LYMPHOCYTES % (AUTO) 8.5 % (20.0-44.0); MEAN CORPUSCULAR HEMOGLOBIN 30 PG (26.0-33.0); MEAN CORPUSCULAR HGB CONC 32 g/dl (31.0-36.0); MEAN CORPUSCULAR VOLUME 96 fL (80-96); MONOCYTES # (AUTO) 0.8 K/uL (0.1-1.30); MONOCYTES % (AUTO) 11.8 % (2.0-12.0); NEUTROPHILS # (AUTO) 4.9 K/uL (1.8-8.9); NEUTROPHILS % (AUTO) 73.9 % (43.0-81.0); PLATELET COUNT (AUTO) 191 K/uL (150-450); RED CELL DISTRIBUTION WIDTH 18.6 % (11.5-15.0); WHITE BLOOD COUNT (AUTO) 6.6 K/uL (4.3-11.0)
[2023-08-31 18:15] LABS: ANISOCYTOSIS 1+; BAND % (MANUAL) 1 % (0.0-5.0); BASOPHILS % (MANUAL) 1 % (0.0-2.0); EOSINOPHILS % (MANUAL) 5 % (0-4); LYMPHOCYTES % (MANUAL) 10 % (16-48); MONOCYTES % (MANUAL) 8 % (0-11.0); NEUTROPHILS % (MANUAL) 75 (42-76); PLATELET ESTIMATE ADEQU; TEAR DROP CELLS RARE
[2023-08-31 18:16] LABS: OVALOCYTES RARE
[2023-08-31] MEDS: WARFARIN SODIUM 1 MG TABLET PO SCH (20:00)
[2023-08-31] MEDS ORDERED: OMEPRAZOLE 20 MG CAPSULE.DR PO SCH (20:00)
[2023-08-31] MEDS ORDERED: DOCUSATE SODIUM 100 MG CAPSULE PO PRN (20:00)
[2023-08-31] MEDS: LEVETIRACETAM (250 MG) 250 MG TABLET PO SCH (21:00)
[2023-08-31] MEDS: VIT B CMPLX 3/FA/VIT C/BIOTIN 1 TAB TABLET PO SCH (21:00)
[2023-08-31] MEDS: ATORVASTATIN 10 MG TABLET PO SCH (21:01)
[2023-09-01] VITALS (7 sets, daily range): BP systolic 150–184; BP diastolic 65–85; TEMP 97.3–98.7; O2SAT 98–100
[2023-09-01] MEDS: hydrALAZINE HCL 25 MG TABLET PO PRN (01:49)
[2023-09-01] MEDS ORDERED: WARFARIN SODIUM 1 MG TABLET ONE (03:22)
[2023-09-01 07:26] LABS: BASOPHILS # (AUTO) 0.1 K/uL (0.0-0.2); BASOPHILS % (AUTO) 0.9 % (0.0-2.0); EOSINOPHILS # (AUTO) 0.5 K/uL (0.0-0.7); EOSINOPHILS % (AUTO) 5.4 % (0.0-6.0); HEMATOCRIT 24 % (39-51); HEMOGLOBIN 7.8 g/dL (13.5-17.5); LYMPHOCYTES % (AUTO) 9.6 % (20.0-44.0); MEAN CORPUSCULAR HEMOGLOBIN 30 PG (26.0-33.0); MEAN CORPUSCULAR HGB CONC 33 g/dl (31.0-36.0); MEAN CORPUSCULAR VOLUME 92 fL (80-96); MONOCYTES # (AUTO) 1.1 K/uL (0.1-1.30); MONOCYTES % (AUTO) 11.2 % (2.0-12.0); NEUTROPHILS # (AUTO) 7.4 K/uL (1.8-8.9); NEUTROPHILS % (AUTO) 72.9 % (43.0-81.0); PLATELET COUNT (AUTO) 204 K/uL (150-450); RED BLOOD CELL COUNT(AUTO) 2.59 MIL/uL (4.5-6.0); RED CELL DISTRIBUTION WIDTH 18.2 % (11.5-15.0); WHITE BLOOD COUNT (AUTO) 10.2 K/uL (4.3-11.0)
[2023-09-01 07:48] LABS: CALCIUM, SERUM 8.7 mg/dL (8.5-10.1); CARBON DIOXIDE 27 mmol/L (21-32); CHLORIDE 96 mmol/L (98-107); CREATININE 6.6 mg/dL (0.6-1.3); GLUCOSE 79 mg/dL (74-106); MAGNESIUM 2.1 mg/dL (1.8-2.4); PHOSPHORUS 4.4 mg/dL (2.5-4.9); SODIUM SERUM 132 mmol/L (136-145); UREA NITROGEN, BLOOD 32 mg/dL (7-18)
[2023-09-01] MEDS: SEVELAMER CARBONATE 800 MG TABLET PO SCH (08:31)
[2023-09-01] MEDS: COLCHICINE 0.6 MG TABLET PO SCH (08:31)
[2023-09-01] MEDS: AMIODARONE HCL 200 MG TABLET PO SCH (08:32)
[2023-09-01] MEDS: PROSOURCE / PROSTAT (PYXIS) 30 ML UDC PO SCH (08:32)
[2023-09-01] MEDS: CHOLECALCIFEROL (VITAMIN D 3) 400 UNIT TABLET PO SCH (08:32)
[2023-09-01] MEDS: DORZOLAMIDE OPTH 2% 10 ML BOTTLE EACHEYE SCH (09:00)
[2023-09-01 09:43] LABS: INR 2.28 (0.91-1.10); PROTHROMBIN TIME 22.9 SECS (9.2-11.1)
[2023-09-01] MEDS: IPRATROPIUM NEB FS 0.5 MG/2.5 ML AMPUL.NEB IH SCH (11:30)
[2023-09-01] MEDS: WARFARIN SODIUM 1 MG TABLET PO SCH (17:06)
[2023-09-01] MEDS: hydrALAZINE HCL IV 20 MG VIAL IV ONE (18:52)
== END 2023-09-01 21:50 | DRG 811 ==
LOC: ER 23:07 → TELE 08-31 01:23
PROVIDERS: ADMIT Internal Medicine; ATTEND Internal Medicine
PROC: 30233N1 Transfusion of Nonautologous Red Blood Cells into Peripheral Vein, Percutaneous Approach (ICD-10-PCS; principal; 2023-08-30)
PROC: 5A1D70Z Performance of Urinary Filtration, Intermittent, Less than 6 Hours Per Day (ICD-10-PCS; 2023-08-31)
DX: D64.9 Anemia, unspecified (principal); N18.6 End stage renal disease; I13.2 Hypertensive heart and chronic kidney disease with heart failure and with stage 5 chronic kidney disease, or end stage renal disease; I50.32 Chronic diastolic (congestive) heart failure; D63.8 Anemia in other chronic diseases classified elsewhere; E11.22 Type 2 diabetes mellitus with diabetic chronic kidney disease; Z20.822 Contact with and (suspected) exposure to COVID-19; E78.5 Hyperlipidemia, unspecified; I48.91 Unspecified atrial fibrillation; Z95.0 Presence of cardiac pacemaker; Z99.2 Dependence on renal dialysis; G40.909 Epilepsy, unspecified, not intractable, without status epilepticus; Z87.19 Personal history of other diseases of the digestive system; Z95.2 Presence of prosthetic heart valve; I25.2 Old myocardial infarction; Z79.51 Long term (current) use of inhaled steroids; Z79.82 Long term (current) use of aspirin; Z79.899 Other long term (current) drug therapy; Z79.01 Long term (current) use of anticoagulants; E11.51 Type 2 diabetes mellitus with diabetic peripheral angiopathy without gangrene; E87.6 Hypokalemia; Z86.79 Personal history of other diseases of the circulatory system; M89.8X9 Other specified disorders of bone, unspecified site; N28.89 Other specified disorders of kidney and ureter
CPT/HCPCS: 36415; 71045-TC; 80048-TC; 80053-TC; 83605-TC; 83735-TC; 83880; 84100-TC; 84484-TC; 85025-TC; 85610-TC; 86850-TC; 90935-TC; 94799-TC; G0378; J0360; J7030; J7050; P9016

== ENCOUNTER 2023-10-09 19:59 | Inpatient (IN) | payer MEDICARE, OTHER ==
[~2023-10-09] VITALS: Ht 167.6 cm; Wt 67.6 kg
[~2023-10-09 19:59] MED LIST changes: +*INS REG3 SQ; -ALBU2.5V38 IH; -ASPI-1169 PO; +OMEP20CA15 PO; +WARF1TAB86 PO; -WARF3TAB59 PO
[2023-10-09 21:10] LABS: BASOPHILS # (AUTO) 0.1 K/uL (0.0-0.2); BASOPHILS % (AUTO) 0.9 % (0.0-2.0); EOSINOPHILS # (AUTO) 0.5 K/uL (0.0-0.7); EOSINOPHILS % (AUTO) 7.7 % (0.0-6.0); HEMATOCRIT 25 % (39-51); HEMOGLOBIN 7.8 g/dL (13.5-17.5); LYMPHOCYTES # (AUTO) 0.6 K/uL (0.8-4.8); LYMPHOCYTES % (AUTO) 10.2 % (20.0-44.0); MEAN CORPUSCULAR HEMOGLOBIN 27 PG (26.0-33.0); MEAN CORPUSCULAR HGB CONC 31 g/dl (31.0-36.0); MEAN CORPUSCULAR VOLUME 85 fL (80-96); MONOCYTES # (AUTO) 0.7 K/uL (0.1-1.30); MONOCYTES % (AUTO) 10.8 % (2.0-12.0); NEUTROPHILS # (AUTO) 4.3 K/uL (1.8-8.9); NEUTROPHILS % (AUTO) 70.4 % (43.0-81.0); PLATELET COUNT (AUTO) 148 K/uL (150-450); RED BLOOD CELL COUNT(AUTO) 2.94 MIL/uL (4.5-6.0); RED CELL DISTRIBUTION WIDTH 23.3 % (11.5-15.0); WHITE BLOOD COUNT (AUTO) 6.1 K/uL (4.3-11.0)
[2023-10-09 21:14] LABS: CALCIUM, SERUM 8.8 mg/dL (8.5-10.1); CARBON DIOXIDE 31 mmol/L (21-32); CHLORIDE 99 mmol/L (98-107); GLUCOSE 170 mg/dL (74-106); POTASSIUM 3.8 mmol/L (3.5-5.1); SODIUM SERUM 136 mmol/L (136-145); UREA NITROGEN, BLOOD 42 mg/dL (7-18)
[2023-10-09 21:17] LABS: CREATININE 8.1 mg/dL (0.6-1.3)
[2023-10-09 21:23] LABS: INR 1.37 (0.91-1.10); PARTIAL THROMBOPLASTIN TIME 32.9 SEC (24.3-34.3); PROTHROMBIN TIME 13.9 SECS (9.2-11.1)
[2023-10-10] VITALS: BP 177/73; TEMP 97.6; O2SAT 100
[2023-10-10] MEDS ORDERED: MAGNESIUM HYDROXIDE 30 ML UDC PO PRN
[2023-10-10] MEDS ORDERED: MAG HYDROX/AL HYDROX/SIMETH 30 ML UDC PO PRN
[2023-10-10] MEDS ORDERED: Z GUARD REMEDY 4 OZ OINT TP PRN
[2023-10-10] MEDS ORDERED: ACETAMINOPHEN 325 MG TABLET PO PRN
[2023-10-10] MEDS ORDERED: HEPARIN INFUSION/D5W 500 ML IV ONE (01:42)
[2023-10-10] MEDS: HEPARIN SODIUM, PORCINE 1000 UNIT/1 ML VIAL IV ONE (01:53)
[2023-10-10] MEDS: HEPARIN SODIUM, PORCINE 5000 UNITS/1 ML VIAL ONE (02:05)
[2023-10-10] MEDS: HEPARIN INFUSION/D5W 500 ML IV PRN (02:05)
[2023-10-10 04:00] VITALS: BP_SYST 169; BP_SYST 177; BP_DIAS 63; BP_DIAS 73; TEMP 97.6; TEMP 97.8; O2SAT 100; O2SAT 99
[2023-10-10 06:41] LABS: BASOPHILS # (AUTO) 0.1 K/uL (0.0-0.2); BASOPHILS % (AUTO) 1.2 % (0.0-2.0); EOSINOPHILS # (AUTO) 0.7 K/uL (0.0-0.7); HEMATOCRIT 23 % (39-51); HEMOGLOBIN 7.5 g/dL (13.5-17.5); LYMPHOCYTES % (AUTO) 13.5 % (20.0-44.0); MEAN CORPUSCULAR HEMOGLOBIN 28 PG (26.0-33.0); MEAN CORPUSCULAR HGB CONC 32 g/dl (31.0-36.0); MEAN CORPUSCULAR VOLUME 86 fL (80-96); MONOCYTES # (AUTO) 0.7 K/uL (0.1-1.30); MONOCYTES % (AUTO) 10.2 % (2.0-12.0); NEUTROPHILS # (AUTO) 4.7 K/uL (1.8-8.9); NEUTROPHILS % (AUTO) 65.1 % (43.0-81.0); PLATELET COUNT (AUTO) 142 K/uL (150-450); RED BLOOD CELL COUNT(AUTO) 2.71 MIL/uL (4.5-6.0); RED CELL DISTRIBUTION WIDTH 23.7 % (11.5-15.0); WHITE BLOOD COUNT (AUTO) 7.3 K/uL (4.3-11.0)
[2023-10-10 07:18] LABS: CALCIUM, SERUM 8.6 mg/dL (8.5-10.1); CARBON DIOXIDE 28 mmol/L (21-32); CHLORIDE 96 mmol/L (98-107); GLUCOSE 97 mg/dL (74-106); MAGNESIUM 2.4 mg/dL (1.8-2.4); PHOSPHORUS 5.5 mg/dL (2.5-4.9); POTASSIUM 3.9 mmol/L (3.5-5.1); SODIUM SERUM 135 mmol/L (136-145); UREA NITROGEN, BLOOD 50 mg/dL (7-18)
[2023-10-10] MEDS ORDERED: BISA5TAB10 PO (07:43)
[2023-10-10] MEDS ORDERED: SODI10PO PO (07:43)
[2023-10-10 07:58] LABS: INR 1.5 (0.91-1.10); PROTHROMBIN TIME 15.5 SECS (9.2-11.1)
[2023-10-10 08:00] VITALS: BP 174/70; TEMP 99; O2SAT 99
[2023-10-10 08:01] LABS: PARTIAL THROMBOPLASTIN TIME 133.2 SEC (24.3-34.3)
[2023-10-10 08:28] LABS: CREATININE 9.1 mg/dL (0.6-1.3)
[2023-10-10] MEDS: PANTOPRAZOLE 40 MG TABLET.DR PO SCH (09:49)
[2023-10-10 12:00] VITALS: BP 183/70; TEMP 98.8; O2SAT 100
[2023-10-10] MEDS ORDERED: DOCUSATE SODIUM 100 MG CAPSULE PO PRN (12:00)
[2023-10-10] MEDS ORDERED: Medication Not On Formulary EA (Sodium Zirconium Cyclosilicate (Lokelma) 10 GM) PO SCH (12:00)
[2023-10-10] MEDS ORDERED: DEXTROSE 50%-WATER 50 ML DISP.SYRIN IV PRN (12:00)
[2023-10-10] MEDS ORDERED: COLCHICINE 0.6 MG TABLET PO SCH (12:00)
[2023-10-10] MEDS: BLOOD SUGAR DIAGNOSTIC 1 EACH STRIP VI SCH (12:05)
[2023-10-10] MEDS: DORZOLAMIDE OPTH 2% 10 ML BOTTLE EACHEYE SCH (14:32)
[2023-10-10] MEDS: SEVELAMER CARBONATE 800 MG TABLET PO SCH (14:32)
[2023-10-10 16:00] VITALS: BP 173/64; TEMP 99; O2SAT 91
[2023-10-10] MEDS: PROSOURCE / PROSTAT (PYXIS) 30 ML UDC PO SCH (17:00)
[2023-10-10 20:00] VITALS: BP 157/63; TEMP 98.2; O2SAT 98
[2023-10-10] MEDS: LEVETIRACETAM (250 MG) 250 MG TABLET PO SCH (20:54)
[2023-10-10] MEDS: ATORVASTATIN 10 MG TABLET PO SCH (21:30)
[2023-10-10] MEDS: *INSULIN REGULAR(HUMULIN R)HUM 100 UNIT/ML VIAL SQ PRN (22:25)
[2023-10-11] VITALS: BP_SYST 160; BP_SYST 172; BP_DIAS 68; BP_DIAS 78; TEMP 99.3; O2SAT 95
[2023-10-11 04:00] VITALS: BP 162/64; TEMP 98.6; O2SAT 96
[2023-10-11 08:00] VITALS: BP 132/64; TEMP 98.1; O2SAT 100
[2023-10-11 08:04] LABS: BASOPHILS # (AUTO) 0.1 K/uL (0.0-0.2); BASOPHILS % (AUTO) 1.1 % (0.0-2.0); EOSINOPHILS # (AUTO) 0.6 K/uL (0.0-0.7); EOSINOPHILS % (AUTO) 7.6 % (0.0-6.0); HEMATOCRIT 26 % (39-51); HEMOGLOBIN 8.3 g/dL (13.5-17.5); LYMPHOCYTES % (AUTO) 13.1 % (20.0-44.0); MEAN CORPUSCULAR HEMOGLOBIN 27 PG (26.0-33.0); MEAN CORPUSCULAR HGB CONC 32 g/dl (31.0-36.0); MEAN CORPUSCULAR VOLUME 86 fL (80-96); MONOCYTES # (AUTO) 0.8 K/uL (0.1-1.30); MONOCYTES % (AUTO) 11.6 % (2.0-12.0); NEUTROPHILS # (AUTO) 4.9 K/uL (1.8-8.9); NEUTROPHILS % (AUTO) 66.6 % (43.0-81.0); PLATELET COUNT (AUTO) 151 K/uL (150-450); RED BLOOD CELL COUNT(AUTO) 3.09 MIL/uL (4.5-6.0); RED CELL DISTRIBUTION WIDTH 23.9 % (11.5-15.0); WHITE BLOOD COUNT (AUTO) 7.3 K/uL (4.3-11.0)
[2023-10-11 09:03] LABS: CALCIUM, SERUM 8.7 mg/dL (8.5-10.1); CARBON DIOXIDE 26 mmol/L (21-32); CHLORIDE 94 mmol/L (98-107); CREATININE 6.9 mg/dL (0.6-1.3); GLUCOSE 86 mg/dL (74-106); PHOSPHORUS 4.1 mg/dL (2.5-4.9); POTASSIUM 3.8 mmol/L (3.5-5.1); SODIUM SERUM 134 mmol/L (136-145); UREA NITROGEN, BLOOD 34 mg/dL (7-18)
[2023-10-11] MEDS: BISACODYL (5 MG) 5 MG TABLET.DR PO SCH (09:03)
[2023-10-11] MEDS: CHOLECALCIFEROL 1,000 UNIT TABLET (VIT D3) PO SCH (09:03)
[2023-10-11] MEDS: VIT B CMPLX 3/FA/VIT C/BIOTIN 1 TAB TABLET PO SCH (09:04)
[2023-10-11] MEDS: AMIODARONE HCL 200 MG TABLET PO SCH (09:04)
[2023-10-11 12:00] VITALS: BP 152/73; TEMP 98.1; O2SAT 100
[2023-10-11] MEDS: INSULIN REGULAR, HUMAN 100 UNIT/ML 3 ML VIAL SQ PRN (12:24)
[2023-10-11 13:09] LABS: INR 1.46 (0.91-1.10); PROTHROMBIN TIME 15.1 SECS (9.2-11.1)
[2023-10-11 16:00] VITALS: BP 172/74; TEMP 98.1; O2SAT 100
[2023-10-11 20:00] VITALS: BP 171/70; TEMP 97.2; O2SAT 100
[2023-10-11] MEDS: ONDANSETRON HCL/PF 4 MG/2 ML VIAL IVP PRN (23:22)
[2023-10-12 04:00] VITALS: BP 154/70; TEMP 97.2; O2SAT 100
[2023-10-12 07:40] LABS: BASOPHILS # (AUTO) 0.1 K/uL (0.0-0.2); BASOPHILS % (AUTO) 0.8 % (0.0-2.0); EOSINOPHILS # (AUTO) 0.5 K/uL (0.0-0.7); EOSINOPHILS % (AUTO) 6.6 % (0.0-6.0); HEMATOCRIT 24 % (39-51); LYMPHOCYTES # (AUTO) 0.8 K/uL (0.8-4.8); LYMPHOCYTES % (AUTO) 9.9 % (20.0-44.0); MEAN CORPUSCULAR HEMOGLOBIN 28 PG (26.0-33.0); MEAN CORPUSCULAR HGB CONC 33 g/dl (31.0-36.0); MEAN CORPUSCULAR VOLUME 85 fL (80-96); MONOCYTES # (AUTO) 0.8 K/uL (0.1-1.30); MONOCYTES % (AUTO) 10.3 % (2.0-12.0); NEUTROPHILS # (AUTO) 5.7 K/uL (1.8-8.9); NEUTROPHILS % (AUTO) 72.4 % (43.0-81.0); PLATELET COUNT (AUTO) 135 K/uL (150-450); RED BLOOD CELL COUNT(AUTO) 2.86 MIL/uL (4.5-6.0); RED CELL DISTRIBUTION WIDTH 23.4 % (11.5-15.0); WHITE BLOOD COUNT (AUTO) 7.9 K/uL (4.3-11.0)
[2023-10-12 08:00] VITALS: BP 134/55; TEMP 98.2; O2SAT 100
[2023-10-12 08:04] LABS: CALCIUM, SERUM 8.5 mg/dL (8.5-10.1); CARBON DIOXIDE 27 mmol/L (21-32); CHLORIDE 92 mmol/L (98-107); GLUCOSE 82 mg/dL (74-106); MAGNESIUM 2.4 mg/dL (1.8-2.4); PHOSPHORUS 6.2 mg/dL (2.5-4.9); POTASSIUM 3.9 mmol/L (3.5-5.1); SODIUM SERUM 132 mmol/L (136-145); UREA NITROGEN, BLOOD 46 mg/dL (7-18)
[2023-10-12 08:30] LABS: CREATININE 8.5 mg/dL (0.6-1.3)
[2023-10-12] MEDS: EPOETIN ALFA (10,000 UNIT) 10,000 UNIT/ML VIAL SQ ONE (10:47)
[2023-10-12 14:17] VITALS: O2SAT 94
[2023-10-12 16:00] VITALS: BP 169/66; TEMP 98.2; O2SAT 98
[2023-10-12] MEDS: WARFARIN SODIUM 5 MG TABLET PO SCH (16:24)
[2023-10-12 20:00] VITALS: BP 167/69; TEMP 99; O2SAT 100
[2023-10-13 04:00] VITALS: BP 165/69; TEMP 98.8; O2SAT 99
[2023-10-13 07:12] LABS: INR 1.54 (0.91-1.10); PROTHROMBIN TIME 15.9 SECS (9.2-11.1)
[2023-10-13 07:46] LABS: BASOPHILS % (AUTO) 0.6 % (0.0-2.0); EOSINOPHILS # (AUTO) 0.4 K/uL (0.0-0.7); EOSINOPHILS % (AUTO) 4.4 % (0.0-6.0); HEMATOCRIT 25 % (39-51); HEMOGLOBIN 8.1 g/dL (13.5-17.5); LYMPHOCYTES # (AUTO) 0.8 K/uL (0.8-4.8); LYMPHOCYTES % (AUTO) 9.8 % (20.0-44.0); MEAN CORPUSCULAR HEMOGLOBIN 27 PG (26.0-33.0); MEAN CORPUSCULAR HGB CONC 32 g/dl (31.0-36.0); MEAN CORPUSCULAR VOLUME 86 fL (80-96); MONOCYTES # (AUTO) 0.9 K/uL (0.1-1.30); MONOCYTES % (AUTO) 11.2 % (2.0-12.0); NEUTROPHILS # (AUTO) 6.1 K/uL (1.8-8.9); PLATELET COUNT (AUTO) 125 K/uL (150-450); RED BLOOD CELL COUNT(AUTO) 2.97 MIL/uL (4.5-6.0); RED CELL DISTRIBUTION WIDTH 23.8 % (11.5-15.0); WHITE BLOOD COUNT (AUTO) 8.2 K/uL (4.3-11.0)
[2023-10-13 08:00] VITALS: BP 168/74; TEMP 98.8; O2SAT 99
[2023-10-13] MEDS: COLCHICINE 0.6 MG TABLET PO SCH (08:26)
[2023-10-13 10:00] VITALS: O2SAT 98
[2023-10-13 16:00] VITALS: BP 156/67; TEMP 98.7; O2SAT 98
[2023-10-13 20:00] VITALS: BP 158/55; TEMP 98.2; O2SAT 98
[2023-10-14] MEDS: ZOLPIDEM TARTRATE 5 MG TABLET PO PRN (00:27)
[2023-10-14 04:58] VITALS: BP 157/60; TEMP 98.5; O2SAT 97
[2023-10-14 08:00] VITALS: BP 160/62; TEMP 98.3; O2SAT 97
[2023-10-14 12:00] VITALS: BP 100/67; TEMP 98; O2SAT 99
[2023-10-14 12:06] LABS: INR 2.35 (0.91-1.10); PROTHROMBIN TIME 23.6 SECS (9.2-11.1)
[2023-10-14] MEDS: HEPARIN INFUSION/D5W 500 ML IV PRN (15:08)
[2023-10-14 16:00] VITALS: BP 170/66; TEMP 98.6; O2SAT 96
[2023-10-14] MEDS: WARFARIN SODIUM 5 MG TABLET PO SCH (16:17)
[2023-10-14 16:52] VITALS: BP 160/56; TEMP 98.6; O2SAT 96
[2023-10-14] MEDS ORDERED: WARFARIN SODIUM 5 MG TABLET PO SCH (17:00)
[2023-10-14] MEDS: ACETAMINOPHEN 325 MG TABLET PO PRN (18:22)
[2023-10-14 20:00] VITALS: BP 169/65; TEMP 98.4; O2SAT 98
[2023-10-15] MEDS: hydrALAZINE HCL 10 MG TABLET PO PRN (00:04)
[2023-10-15 04:00] VITALS: BP 155/78; TEMP 98.1; O2SAT 97
[2023-10-15 06:45] LABS: INR 2.9 (0.91-1.10); PROTHROMBIN TIME 28.7 SECS (9.2-11.1)
[2023-10-15 06:54] LABS: BASOPHILS % (AUTO) 0.4 % (0.0-2.0); EOSINOPHILS # (AUTO) 0.3 K/uL (0.0-0.7); EOSINOPHILS % (AUTO) 2.8 % (0.0-6.0); HEMATOCRIT 27 % (39-51); HEMOGLOBIN 8.7 g/dL (13.5-17.5); LYMPHOCYTES # (AUTO) 0.7 K/uL (0.8-4.8); LYMPHOCYTES % (AUTO) 6.9 % (20.0-44.0); MEAN CORPUSCULAR HEMOGLOBIN 28 PG (26.0-33.0); MEAN CORPUSCULAR HGB CONC 33 g/dl (31.0-36.0); MEAN CORPUSCULAR VOLUME 85 fL (80-96); MONOCYTES % (AUTO) 9.1 % (2.0-12.0); NEUTROPHILS # (AUTO) 8.5 K/uL (1.8-8.9); NEUTROPHILS % (AUTO) 80.8 % (43.0-81.0); PLATELET COUNT (AUTO) 122 K/uL (150-450); RED BLOOD CELL COUNT(AUTO) 3.12 MIL/uL (4.5-6.0); WHITE BLOOD COUNT (AUTO) 10.6 K/uL (4.3-11.0)
[2023-10-15 06:57] LABS: CHLORIDE 89 mmol/L (98-107); GLUCOSE 86 mg/dL (74-106); SODIUM SERUM 126 mmol/L (136-145); UREA NITROGEN, BLOOD 51 mg/dL (7-18)
[2023-10-15] MEDS ORDERED: WARF4TAB72 PO (07:20)
[2023-10-15 07:28] LABS: CARBON DIOXIDE 23 mmol/L (21-32)
[2023-10-15 08:00] VITALS: BP 160/67; TEMP 98.8; O2SAT 95
[2023-10-15 08:23] LABS: CREATININE 10.1 mg/dL (0.6-1.3)
[2023-10-15 11:35] VITALS: O2SAT 91
[2023-10-15 16:00] VITALS: BP 176/16; TEMP 98.6; O2SAT 94
[2023-10-15] MEDS: WARFARIN SODIUM 5 MG TABLET PO SCH (16:45)
[2023-10-15 20:19] VITALS: BP 182/59
== END 2023-10-15 21:27 | DRG 814 ==
LOC: ER 20:04 → TELE1 22:00 → MEDSG1 10-11 08:53
PROVIDERS: ADMIT Nurse Practitioner Family; ATTEND Internal Medicine
PROC: 5A1D70Z Performance of Urinary Filtration, Intermittent, Less than 6 Hours Per Day (ICD-10-PCS; principal; 2023-10-10)
DX: D68.59 Other primary thrombophilia (principal); N18.6 End stage renal disease; I13.2 Hypertensive heart and chronic kidney disease with heart failure and with stage 5 chronic kidney disease, or end stage renal disease; E87.1 Hypo-osmolality and hyponatremia; K21.9 Gastro-esophageal reflux disease without esophagitis; I50.9 Heart failure, unspecified; Z99.2 Dependence on renal dialysis; Z95.2 Presence of prosthetic heart valve; Z95.0 Presence of cardiac pacemaker; M89.8X9 Other specified disorders of bone, unspecified site; G40.909 Epilepsy, unspecified, not intractable, without status epilepticus; I48.91 Unspecified atrial fibrillation; E11.22 Type 2 diabetes mellitus with diabetic chronic kidney disease; E11.51 Type 2 diabetes mellitus with diabetic peripheral angiopathy without gangrene; E78.5 Hyperlipidemia, unspecified; Z79.4 Long term (current) use of insulin; Z79.01 Long term (current) use of anticoagulants; Z79.51 Long term (current) use of inhaled steroids; Z79.899 Other long term (current) drug therapy; D63.8 Anemia in other chronic diseases classified elsewhere; I49.9 Cardiac arrhythmia, unspecified; N28.89 Other specified disorders of kidney and ureter; N40.0 Benign prostatic hyperplasia without lower urinary tract symptoms; Z86.79 Personal history of other diseases of the circulatory system; Z98.890 Other specified postprocedural states
CPT/HCPCS: 36415; 74018; 80048-TC; 82962-TC; 83735-TC; 84100-TC; 85025-TC; 85610-TC; 85730-TC; 87081-TC; 90935-TC; 94799-TC; A4223; G0378; J0885; J1644; J1815; J2405; J3490; J7030; J7050